=== PATIENT | female | born 1995 | race Caucasian/White ===

== ENCOUNTER 2017-11-02 18:03 | Inpatient (IN) | payer SELFPAY ==
[~2017-11-02] VITALS: Ht 167.6 cm; Wt 61.8 kg
[2017-11-02 18:17] VITALS: BP 112/84; PULSE 95; RESP 16; TEMP 98.3; O2SAT 97
--- NOTE | 2017-11-02 20:33 | PD ---
HPI Chief Complaint: Psychiatric Symptoms Time Seen by Provider: 20:26 Travel History International Travel<30 days: No Contact w/Intl Traveler<30days: No Traveled to known affect area: No History of Present Illness HPI 22-year-old female presents to the emergency room with her father for evaluation of altered mental status. Patient's mother states she started Lexapro and Abilify recently and since then she has not been acting normally. He states she is responding to external stimuli. Patient reports using drugs including cocaine but denies any recent drug use. She denies any physical complaints at this time. Denies headache, shortness of breath, chest pain, abdominal pain. She is difficult to extract information from because she seems preoccupied and has difficulty with word finding. History is limited. [facility] Social History Tobacco Use: No Allergies-Medications (Allergen,Severity, Reaction): Coded Allergies: No Known Allergies (Unverified , 11/02/17) Reported Meds & Prescriptions Reported Meds & Active Scripts Active Reported Lexapro (Escitalopram Oxalate) 10 Mg Tab 10 Mg PO DAILY Review of Systems Except as stated in HPI: all other systems reviewed are Neg Physical Exam Narrative GENERAL: Well-nourished, well-developed female no acute distress. Afebrile. Ambulatory. SKIN: Focused skin assessment warm/dry. HEAD: Normocephalic. EYES: PERRL, EOMI, no discharge or injection. No scleral icterus. Pupils are 7mm and equal. NECK: Supple, trachea midline. No JVD or lymphadenopathy. CARDIOVASCULAR: Tachycardic. Regular rhythm without murmurs, gallops, or rubs. RESPIRATORY: Breath sounds equal bilaterally. No accessory muscle use. PSYCHIATRIC: No delusional thought processes. No hallucinations. Flat affect. Good mood. Data Data Last Documented VS Vital Signs Date Time Temp Pulse Resp B/P (MAP) Pulse Ox O2 Delivery O2 Flow Rate FiO2 11/03/17 02:23 97.9 56 17 106/59 (75) 97 Room Air Orders Orders Complete Blood Count With Diff (11/02/17 19:39) Comprehensive Metabolic Panel (11/02/17 19:39) Urinalysis - C+S If Indicated (11/02/17 19:39) Ed Urine Pregnancytest Poc (11/02/17 19:39) Psych Screen (11/02/17 19:39) Drug Screen, Random Urine (11/02/17 19:39) Alcohol (Ethanol) (11/02/17 19:39) Salicylates (Aspirin) (11/02/17 19:39) Tylenol (Acetaminophen) (11/02/17 19:39) Ammonia (11/02/17 20:26) Ct Brain W/O Iv Contrast(Rout) (11/02/17 20:26) Cath For Specimen (11/02/17 21:07) Potassium Chloride (Kcl) (11/02/17 21:45) Diet Regular Basic (11/03/17 Breakfast) Diet Regular Basic (11/03/17 Lunch) Aripiprazole (Abilify) (11/03/17 10:45) Aripiprazole (Abilify) (11/03/17 11:00) Lorazepam (Ativan) (11/03/17 11:00) Clonazepam (Klonopin) (11/03/17 21:00) Escitalopram (Lexapro) (11/03/17 10:45) Admit To Inpatient Psych (11/03/17 ) Vital Signs (Adult) HANY.Q12H.E (11/03/17 10:39) Activity Oob Ad Rosaura (11/03/17 10:39) Lorazepam (Ativan) (11/03/17 10:45) Lorazepam Inj (Ativan Inj) (11/03/17 10:45) Lorazepam (Ativan) (11/03/17 10:45) Lorazepam Inj (Ativan Inj) (11/03/17 10:45) Acetaminophen (Tylenol) (11/03/17 10:45) Magnesium Hydroxide Liq (Milk Of Magnesi (11/03/17 10:45) Al-Mag Hy-Si 40-40-4 Mg/Ml Liq (Mag-Al P (11/03/17 10:45) Nicotine 21 Mg Patch.24 Hr (Habitrol 21 (11/03/17 10:45) Basic Metabolic Panel (Bmp) (11/04/17 06:00) Lipid Profile (11/04/17 06:00) Hemoglobin (Hgb) A1c (11/04/17 06:00) Consult Psychiatry (11/03/17 ) Labs Laboratory Tests Test 11/02/17 19:55 11/02/17 20:30 11/02/17 21:10 White Blood Count 11.1 TH/MM3 Red Blood Count 5.17 MIL/MM3 Hemoglobin 15.5 GM/DL Hematocrit 45.2 % Mean Corpuscular Volume 87.5 FL Mean Corpuscular Hemoglobin 29.9 PG Mean Corpuscular Hemoglobin Concent 34.2 % Red Cell Distribution Width 12.8 % Platelet Count 360 TH/MM3 Mean Platelet Volume 9.0 FL Neutrophils (%) (Auto) 66.1 % Lymphocytes (%) (Auto) 27.2 % Monocytes (%) (Auto) 5.5 % Eosinophils (%) (Auto) 0.4 % Basophils (%) (Auto) 0.8 % Neutrophils # (Auto) 7.3 TH/MM3 Lymphocytes # (Auto) 3.0 TH/MM3 Monocytes # (Auto) 0.6 TH/MM3 Eosinophils # (Auto) 0.0 TH/MM3 Basophils # (Auto) 0.1 TH/MM3 CBC Comment DIFF FINAL Differential Comment Blood Urea Nitrogen 13 MG/DL Creatinine 0.95 MG/DL Random Glucose 123 MG/DL Total Protein 9.1 GM/DL Albumin 5.2 GM/DL Calcium Level 9.8 MG/DL Alkaline Phosphatase 87 U/L Aspartate Amino Transf (AST/SGOT) 14 U/L Alanine Aminotransferase (ALT/SGPT) 21 U/L Total Bilirubin 0.7 MG/DL Sodium Level 138 MEQ/L Potassium Level 3.1 MEQ/L Chloride Level 103 MEQ/L Carbon Dioxide Level 22.3 MEQ/L Anion Gap 13 MEQ/L Estimat Glomerular Filtration Rate 74 ML/MIN Salicylates Level LESS THAN 1.7 MG/DL Acetaminophen Level LESS THAN 2.0 MCG/ML Ethyl Alcohol Level LESS THAN 3 MG/DL Urine Color YELLOW Urine Turbidity HAZY Urine pH 6.0 Urine Specific [place] 1.038 Urine Protein 30 mg/dL Urine Glucose (UA) NEG mg/dL Urine Ketones 10 mg/dL Urine Occult Blood TRACE Urine Nitrite NEG Urine Bilirubin NEG Urine Urobilinogen 2.0 MG/DL Urine Leukocyte Esterase LARGE Urine RBC 1 /hpf Urine WBC LESS THAN 1 /hpf Urine Squamous Epithelial Cells 3 /hpf Urine Mucus MANY /lpf Microscopic Urinalysis Comment CULT NOT INDICATED Urine Opiates Screen NEG Urine Barbiturates Screen NEG Urine Amphetamines Screen NEG Urine Benzodiazepines Screen NEG Urine Cocaine Screen NEG Urine Cannabinoids Screen POS Ammonia 23 MCMOL/L MDM Medical Decision Making Medical Screen Exam Complete: Yes Emergency Medical Condition: Yes Medical Record Reviewed: Yes Differential Diagnosis Schizophrenia, medication side effect, substance induced mood disorder Narrative Course 22-year-old female presents to the emergency room for evaluation of altered mental status that started after starting Abilify and Lexapro. History is limited because patient is preoccupied by internal stimuli. She denies recent drug use. Denies any physical complaints. Patient is slightly tachycardic and her pupils are 7 mm and equal. CBC, CMP, UA, drug screen, ammonia, and CT the brain is ordered and pending. Signed out to nighttime provider pending results. Condition: Stable Izabella Caldwell Nov 02, 2017 20:33
[2017-11-02 20:48] LABS: AUTOMATED NEUTROPHIL # 7.3 TH/MM3 (1.8-7.7); BASOPHIL # 0.1 TH/MM3 (0-0.2); BASOPHIL % 0.8 % (0.0-2.0); EOSINOPHIL % 0.4 % (0.0-4.0); HEMATOCRIT 45.2 % (35.0-46.0); HEMOGLOBIN 15.5 GM/DL (11.6-15.3); LYMPH % 27.2 % (9.0-44.0); MEAN CELL VOLUME 87.5 FL (80.0-100.0); MEAN CORPUSCULAR HEMOGLOBIN 29.9 PG (27.0-34.0); MEAN CORPUSCULAR HGB CONC 34.2 % (32.0-36.0); MONO % 5.5 % (0.0-8.0); MONOCYTE # 0.6 TH/MM3 (0-0.9); NEUT % 66.1 % (16.0-70.0); PLATELET COUNT 360 TH/MM3 (150-450); RED BLOOD COUNT 5.17 MIL/MM3 (4.00-5.30); RED CELL DISTRIBUTION WIDTH 12.8 % (11.6-17.2); WHITE BLOOD COUNT 11.1 TH/MM3 (4.0-11.0)
[2017-11-02 20:49] LABS: BLOOD UREA NITROGEN 13 MG/DL (7-18); CALCIUM 9.8 MG/DL (8.5-10.1); CHLORIDE 103 MEQ/L (98-107); GLUCOSE,RANDOM 123 MG/DL (74-106); SODIUM (NA) 138 MEQ/L (136-145)
[2017-11-02 20:54] LABS: ALT (GPT) 21 U/L (10-53); AST (GOT) 14 U/L (15-37)
[2017-11-02] MEDS ORDERED: LEXA10TA PO (21:19)
[2017-11-02] MEDS ORDERED: ARIP2 PO (21:19)
--- NOTE | 2017-11-02 21:31 | RADRPT ---
EXAM DATE/TIME: 11/02/2017 21:02 [place] COMPARISON: No previous studies available for comparison. INDICATIONS : Altered mental status. RADIATION DOSE: 47.02 CTDIvol (mGy) MEDICAL HISTORY : None SURGICAL HISTORY : None. ENCOUNTER: Initial ACUITY: 1 day PAIN SCALE: 0/10 LOCATION: cranial TECHNIQUE: Multiple contiguous axial images were obtained of the head. Using automated exposure control and adj ustment of the mA and/or kV according to patient size, radiation dose was kept as low as reasonably a chievable to obtain optimal diagnostic quality images. DICOM format image data is available electro nically for review and comparison. FINDINGS: CEREBRUM: The ventricles are normal for age. No evidence of midline shift, mass lesion, hemorrhage or acute in farction. No extra-axial fluid collections are seen. POSTERIOR FOSSA: The cerebellum and brainstem are intact. The 4th ventricle is midline. The cerebellopontine angle i s unremarkable. EXTRACRANIAL: The visualized portion of the orbits is intact. SKULL: The calvaria is intact. No evidence of skull fracture. CONCLUSION: No acute disease. Melchor Ness MD on November 02, 2017 at 21:29 Board Certified Radiologist. This report was verified electronically.
[2017-11-02 21:32] LABS: ALKALINE PHOSPHATASE 87 U/L (45-117); CREATININE 0.95 MG/DL (0.50-1.00); GLOMERULAR FILTRATION RATE 74 ML/MIN (>89); TOTAL BILIRUBIN ADULT 0.7 MG/DL (0.2-1.0); TOTAL PROTEIN 9.1 GM/DL (6.4-8.2)
[2017-11-02 21:34] LABS: ACETAMINOPHEN LESS THAN 2.0 MCG/ML (10.0-30.0)
[2017-11-02 21:35] LABS: ALBUMIN 5.2 GM/DL (3.4-5.0); BICARBONATE 22.3 MEQ/L (21.0-32.0)
[2017-11-02] MEDS ORDERED: POTASSIUM CHLORIDE 20 MEQ CONTROLLED RELEASE TAB PO ONE (21:45)
--- NOTE | 2017-11-02 21:52 | PD ---
Physical Exam Date Seen by Provider: Nov 02, 2017 Time Seen by Provider: 21:50 Narrative For full history and physical examination please see previous providers note. I assumed care of this patient change of shift. At that time labs and imaging were pending. Data Data Last Documented VS Vital Signs Date Time Temp Pulse Resp B/P (MAP) Pulse Ox O2 Delivery O2 Flow Rate FiO2 11/02/17 18:17 98.3 95 16 112/84 (93) 97 Orders Orders Complete Blood Count With Diff (11/02/17 19:39) Comprehensive Metabolic Panel (11/02/17 19:39) Urinalysis - C+S If Indicated (11/02/17 19:39) Ed Urine Pregnancytest Poc (11/02/17 19:39) Psych Screen (11/02/17 19:39) Drug Screen, Random Urine (11/02/17 19:39) Alcohol (Ethanol) (11/02/17 19:39) Salicylates (Aspirin) (11/02/17 19:39) Tylenol (Acetaminophen) (11/02/17 19:39) Ammonia (11/02/17 20:26) Ct Brain W/O Iv Contrast(Rout) (11/02/17 20:26) Cath For Specimen (11/02/17 21:07) Potassium Chloride (Kcl) (11/02/17 21:45) Labs Laboratory Tests Test 11/02/17 19:55 11/02/17 20:30 11/02/17 21:10 White Blood Count 11.1 TH/MM3 Red Blood Count 5.17 MIL/MM3 Hemoglobin 15.5 GM/DL Hematocrit 45.2 % Mean Corpuscular Volume 87.5 FL Mean Corpuscular Hemoglobin 29.9 PG Mean Corpuscular Hemoglobin Concent 34.2 % Red Cell Distribution Width 12.8 % Platelet Count 360 TH/MM3 Mean Platelet Volume 9.0 FL Neutrophils (%) (Auto) 66.1 % Lymphocytes (%) (Auto) 27.2 % Monocytes (%) (Auto) 5.5 % Eosinophils (%) (Auto) 0.4 % Basophils (%) (Auto) 0.8 % Neutrophils # (Auto) 7.3 TH/MM3 Lymphocytes # (Auto) 3.0 TH/MM3 Monocytes # (Auto) 0.6 TH/MM3 Eosinophils # (Auto) 0.0 TH/MM3 Basophils # (Auto) 0.1 TH/MM3 CBC Comment DIFF FINAL Differential Comment Blood Urea Nitrogen 13 MG/DL Creatinine 0.95 MG/DL Random Glucose 123 MG/DL Total Protein 9.1 GM/DL Albumin 5.2 GM/DL Calcium Level 9.8 MG/DL Alkaline Phosphatase 87 U/L Aspartate Amino Transf (AST/SGOT) 14 U/L Alanine Aminotransferase (ALT/SGPT) 21 U/L Total Bilirubin 0.7 MG/DL Sodium Level 138 MEQ/L Potassium Level 3.1 MEQ/L Chloride Level 103 MEQ/L Carbon Dioxide Level 22.3 MEQ/L Anion Gap 13 MEQ/L Estimat Glomerular Filtration Rate 74 ML/MIN Salicylates Level LESS THAN 1.7 MG/DL Acetaminophen Level LESS THAN 2.0 MCG/ML Ethyl Alcohol Level LESS THAN 3 MG/DL Urine Opiates Screen NEG Urine Barbiturates Screen NEG Urine Amphetamines Screen NEG Urine Benzodiazepines Screen NEG Urine Cocaine Screen NEG Urine Cannabinoids Screen POS Ammonia 23 MCMOL/L [facility] Medical Record Reviewed: Yes Supervised Visit with NIKHIL: No Interpretation(s) Laboratory Tests Test 11/02/17 19:55 11/02/17 20:30 11/02/17 21:10 White Blood Count 11.1 TH/MM3 Red Blood Count 5.17 MIL/MM3 Hemoglobin 15.5 GM/DL Hematocrit 45.2 % Mean Corpuscular Volume 87.5 FL Mean Corpuscular Hemoglobin 29.9 PG Mean Corpuscular Hemoglobin Concent 34.2 % Red Cell Distribution Width 12.8 % Platelet Count 360 TH/MM3 Mean Platelet Volume 9.0 FL Neutrophils (%) (Auto) 66.1 % Lymphocytes (%) (Auto) 27.2 % Monocytes (%) (Auto) 5.5 % Eosinophils (%) (Auto) 0.4 % Basophils (%) (Auto) 0.8 % Neutrophils # (Auto) 7.3 TH/MM3 Lymphocytes # (Auto) 3.0 TH/MM3 Monocytes # (Auto) 0.6 TH/MM3 Eosinophils # (Auto) 0.0 TH/MM3 Basophils # (Auto) 0.1 TH/MM3 CBC Comment DIFF FINAL Differential Comment Blood Urea Nitrogen 13 MG/DL Creatinine 0.95 MG/DL Random Glucose 123 MG/DL Total Protein 9.1 GM/DL Albumin 5.2 GM/DL Calcium Level 9.8 MG/DL Alkaline Phosphatase 87 U/L Aspartate Amino Transf (AST/SGOT) 14 U/L Alanine Aminotransferase (ALT/SGPT) 21 U/L Total Bilirubin 0.7 MG/DL Sodium Level 138 MEQ/L Potassium Level 3.1 MEQ/L Chloride Level 103 MEQ/L Carbon Dioxide Level 22.3 MEQ/L Anion Gap 13 MEQ/L Estimat Glomerular Filtration Rate 74 ML/MIN Salicylates Level LESS THAN 1.7 MG/DL Acetaminophen Level LESS THAN 2.0 MCG/ML Ethyl Alcohol Level LESS THAN 3 MG/DL Last Impressions Head CT 11/02/172025 Signed Impressions: Service Date/Time: Thursday, November 02, 2017 21:02 - CONCLUSION: No acute disease. Melchor Ness MD Vital Signs Date Time Temp Pulse Resp B/P (MAP) Pulse Ox O2 Delivery O2 Flow Rate FiO2 11/02/17 18:17 98.3 95 16 112/84 (93) 97 Differential Diagnosis Psychosis versus mood disorder versus substance abuse versus metabolic abnormality versus other Narrative Course Patient is 22-year-old female that presented to the emergency department for psychiatric evaluation under [employer] act. Please see previous providers note for full H&P. CT scan of the brain is negative for acute abnormality. Chemistry with potassium of 3.1, oral replacement ordered. Salicylate, acetaminophen and alcohol levels are unremarkable. Urine drug screen is positive for marijuana. Ammonia level is normal. Patient is medically cleared for psychiatric evaluation. Diagnosis Primary Impression: Medical clearance for psychiatric admission Condition: Stable Maria Isabel Sadns Nov 02, 2017 21:52
[2017-11-03 00:19] LABS: BILIRUBIN, URINE NEG (NEG); BLOOD, URINE TRACE (NEG); GLUCOSE,URINE NEG (NEG); KETONE, URINE 10 mg/dL (NEG); MUCUS URINE MANY /lpf (OCC); NITRITE,URINE NEG (NEG); SQUAMOUS EPITHELIAL CELL URINE 3 /hpf (0-5); URINE COLOR YELLOW (YELLW/STRAW); URINE LEUKOCYTE ESTERASE LARGE (NEG)
[2017-11-03 02:23] VITALS: BP 106/59; PULSE 56; RESP 17; TEMP 97.9; O2SAT 97
[2017-11-03 02:25] VITALS: BP 113/66; PULSE 56; RESP 17; TEMP 97.5; O2SAT 97
[2017-11-03 10:45] VITALS: BP 117/76; PULSE 80; RESP 18; O2SAT 96
[2017-11-03] MEDS: ESCITALOPRAM OXALATE 10 MG TAB PO SCH (10:45)
[2017-11-03] MEDS: NICOTINE 21 MG/24 HR PATCH T-DERMAL SCH (10:45)
[2017-11-03] MEDS ORDERED: ACETAMINOPHEN 325 MG TAB PO PRN (10:45)
[2017-11-03] MEDS: ARIPiprazole 5 MG TAB PO SCH (10:45)
[2017-11-03] MEDS ORDERED: LORazepam 2 MG/ML VIAL IM PRN ×2 (10:45)
[2017-11-03] MEDS ORDERED: LORazepam 1 MG TAB PO PRN (10:45)
[2017-11-03] MEDS ORDERED: MAGNESIUM HYDROXIDE SUSP 30 ML CUP PO PRN (10:45)
[2017-11-03] MEDS ORDERED: LORazepam 0.5 MG TAB PO PRN (10:45)
[2017-11-03] MEDS ORDERED: ARIPiprazole 5 MG TAB PO ONE (11:00)
[2017-11-03] MEDS ORDERED: LORazepam 1 MG TAB PO ONE (11:00)
--- NOTE | 2017-11-03 11:59 | HHI.HP ---
Provisional Diagnosis Admission Date Nov 03, 2017 at 10:42 [place] I. Unspecified psychosis, r/O schizophrenia, r/o schizoaffective disorder [place] II. Deferred [place] III. No significant medical history [place] IV. Recently discharged from [facility] [place] V. 30 Certification of Person's Competence To Provide Express and Informed Consent I have personally examined Rody Leslie , a person being served at [facility] on, Nov 03, 2017 11:31. Express and informed consent means consent voluntarily given in writing, by a competent person, after sufficient explanation and disclosure of the subject matter involved to enable the person to make a knowing and willful decision without any element of force, fraud, deceit, duress, or other form of constraint or coercion. This person is 18 years of age or older, is not now known to be incompetent to consent to treatment with a guardian advocate, and does not have a health care surrogate or proxy currently making medical treatment decisions. I have found this person to be one of the following: [] Competent to provide express and informed consent, as defined above, for voluntary admission to this facility and is competent to provide express and informed consent for treatment. He/she has the consistent capacity to make well reasoned, willful, and knowing decisions concerning his or her medical or mental health treatment. The person fully and consistently understands the purpose of the admission for examination/placement and is fully capable of personally exercising all rights [place] [X] Incompetent to provide express and informed consent to voluntary admission, and this is incompetent to provide express and informed consent to treatment. The person must be transferred to involuntary status and a petition for a guardian advocate filed with the Circuit Court. [] Refusing to provide express and informed consent to voluntary admission but is competent to provide express and informed consent for treatment. The person must be discharged or transferred to involuntary status. Form shall be completed within 24 hours of a person's arrival at the receiving facility and filed in the clinical record of each person: 1. Admitted on a voluntary basis 2. Permitted to provide express and informed consent to his/her own treatment 3. Allowed to transfer from involuntary to voluntary status 4. Prior to permitting a person to consent to his or her own treatment after having been previously found incompetent to consent to treatment. History of Present Illness Capacity: Lacks Capacity HPI The patient is a 22-year-old woman, domiciled with her boyfriend in [place], unemployed, with psychiatric history of depression, cannabis use disorder, 1 previous psychiatric hospitalization, she was just discharged from [facility] after a hospitalization of 4 days due to depression, no previous suicide attempts, she was discharged on Celexa 40 mg, Abilify 2 mg, she has not significant medical history, who presents to the emergency room with her father for evaluation of altered mental status. Patient's mother states she started Lexapro and Abilify recently and since then she has not been acting normally. He states she is responding to external stimuli. Patient reports using drugs including cocaine but denies any recent drug use. She denies any physical complaints at this time. Denies headache, shortness of breath, chest pain, abdominal pain. She is difficult to extract information from because she seems preoccupied and has difficulty with word finding. History is limited. Patient was Boogie acted by Ms. Spencer in the ER. She has a workup of delirium due to confusion. CT scan of the brain is negative for acute abnormality. Chemistry with potassium of 3.1, oral replacement ordered.Urine drug screen is positive for marijuana. Ammonia level is normal. Electronic record was reviewed. Case was widely discussed with nurse in charge medical staff, collateral information from her father was obtained: Tim Malcolmusman, . On psychiatric evaluation today the patient is found standing in the door of her room, very guarded, seems to be in acute distress, very anxious and visibly scared. Once the patient saw me she is started to ask "are you god, are you god, please I ask you for forgiveness, please forgive me, I being doing very bad things," and I started crying. As I redirect I reassured the patient, she was able to calm down, which he seems to be very paranoid and internally preoccupied. Patient reports that she feels that all the eyes around and looking at her. She says that she feels like she is not safe here "and these people could be tried to kill". Patient seems to be very religiously preoccupied, she has a Bible over her bed and is continuously imploring for forgiveness from God and angels. Patient says that she feels like her mind is very weak "I know that you can see what I am thinking now". At some point the patient just stopped talking, not answering any question, with a visible blocking thought. As per nurse in charge , the patient has been acting bizarre in the ER, disinhibited at times, also internally stimulated, paranoid, yesterday she showed sexual inappropriate behavior with another patient. She seems to be confused, but oriented 3. She does not know the reason of her hospitalization. She denies suicidal and homicidal ideation, she denies visual and auditory hallucinations. Her father states that the patient does not have any psychiatric history. She has been a very healthy and normal person. She recently moved with her boyfriend to [place]. About a week ago she called him stating that she was very depressed because her boyfriend was cheating on her with her neighbor. She was talking about killing herself and he took her to [facility] where she was admitted with depression. She was admitted for 4 days and then discharge. However, after the discharge the patient started acting very bizarrely. For example, at some time she was watching that he and she was telling him that the person killed in a movie was her and he started crying. Another thing is that he confirmed that the patient's boyfriend was not cheating of her with antibiotic, and she was most probably paranoid before being admitted in [facility]. About 2 days ago the patient started to cry for no reason, making accusations toward others, making a lot of amish statements and becoming very disorganized and he decided to bring her here. He reports that the mother of the patient is an opiate abuser. But, her grandmother has history of depression and 1 of her aunts committed suicide. Review of Systems Constitutional: DENIES: Diaphoretic episodes, Fatigue, Fever, Weight gain, Weight loss, Chills, Dizziness, Change in appetite, Night Sweats Endocrine: DENIES: Abnorml menstrual pattern, Heat/cold intolerance, Polydipsia , Polyuria, Polyphagia Eyes: DENIES: Blurred vision, Diplopia, Eye inflammation, Eye pain, Vision loss , Photosensitivity, Double Vision Ears, nose, mouth, throat: DENIES: Tinnitus, Hearing loss, Vertigo, Nasal discharge, Oral lesions, Throat pain, Hoarseness, Ear Pain, Running Nose, Epistaxis, Sinus Pain, Toothache, Odynophagia Respiratory: DENIES: Apneas, Cough, Snoring, Wheezing, Hemoptysis, Sputum production, Shortness of breath Cardiovascular: DENIES: Chest pain, Palpitations, Syncope, Dyspnea on Exertion , PND, Lower Extremity Edema, Orthopnea, Claudication Gastrointestinal: DENIES: Abdominal pain, Black stools, Bloody stools, Constipation, Diarrhea, Nausea, Vomiting, Difficulty Swallowing, Anorexia Genitourinary: DENIES: Abnormal vaginal bleeding, Dysmenorrhea, Dyspareunia, Sexual dysfunction, Urinary frequency, Urinary incontinence, Urgency, Hematuria , Dysuria, Nocturia, Vaginal discharge Musculoskeletal: DENIES: Joint pain, Muscle aches, Stiffness, Joint Swelling, Back pain, Neck pain Integumentary: DENIES: Abnormal pigmentation, Pruritus, Rash, Nail changes, Breast masses, Breast skin changes, Nipple discharge Hematologic/lymphatic: DENIES: Bruising, Lymphadenopathy Immunologic/allergic: DENIES: Eczema, Urticaria Neurologic: DENIES: Abnormal gait, Headache, Localized weakness, Paresthesias, Seizures, Speech Problems, Tremor, Poor Balance Psychiatric: COMPLAINS OF: Confusion, Delusions, DENIES: Anxiety, Mood changes , Hallucinations, Agitation, Suicidal Ideation, Homicidal Ideation Substance Abuse History Drugs/Alcohol past 12 months Patient reports daily use of marijuana, occasional use of cocaine Past Family Social History Coded Allergies: No Known Allergies (Unverified , 11/02/17) Reported Medications Aripiprazole (Abilify) 2 Mg Tab, 2 MG PO DAILY, #30 TAB 0 Refills 11/02/17 Escitalopram (Lexapro) 10 Mg Tab, 10 MG PO DAILY, #30 TAB 0 Refills 11/02/17 Current Medications Medications (Trade) Dose Ordered Sig/Ha Route Start Time Stop Time Status Last Admin (Abilify) 5 mg DAILY PO 11/03/17 10:45 (KlonoPIN) 1 mg Q12HR PO 11/03/17 21:00 (Lexapro) 10 mg DAILY PO 11/03/17 10:45 (Ativan) 1 mg Q6H PRN PO 11/03/17 10:45 (Ativan Inj) 1 mg Q6H PRN IM 11/03/17 10:45 (Tylenol) 650 mg Q4H PRN PO 11/03/17 10:45 (Milk Of Magnesia Liq) 30 ml DAILY PRN PO 11/03/17 10:45 (Mag-Al Plus Susp Liq) 30 ml Q6H PRN PO 11/03/17 10:45 (Habitrol 21 Mg Patch.24 Hr) 1 patch DAILY T-DERMAL 11/03/17 10:45 Miscellaneous Information 1 DAILY T-DERMAL 11/04/17 09:00 Family Psych History Her mother is an opiate abuser, she has an element who committed suicide, grandmother depression Social History Patient was born and raised in the [facility], she lives in [place] with her boyfriend, she is unemployed, her highest level of education is high school, she has a 22 year old sister Patient's Strengths (min. 2) Family support Physical Exam No tremors, no EPS, no stiffness, no psychomotor retardation or agitation Vital Signs Vital Signs Date Time Temp Pulse Resp B/P (MAP) Pulse Ox O2 Delivery O2 Flow Rate FiO2 11/03/17 10:45 80 18 117/76 (90) 96 Room Air 11/03/17 02:23 97.9 Lab Results Test 11/02/17 19:55 11/02/17 20:30 11/02/17 21:10 White Blood Count 11.1 TH/MM3 Red Blood Count 5.17 MIL/MM3 Hemoglobin 15.5 GM/DL Hematocrit 45.2 % Mean Corpuscular Volume 87.5 FL Mean Corpuscular Hemoglobin 29.9 PG Mean Corpuscular Hemoglobin Concent 34.2 % Red Cell Distribution Width 12.8 % Platelet Count 360 TH/MM3 Mean Platelet Volume 9.0 FL Neutrophils (%) (Auto) 66.1 % Lymphocytes (%) (Auto) 27.2 % Monocytes (%) (Auto) 5.5 % Eosinophils (%) (Auto) 0.4 % Basophils (%) (Auto) 0.8 % Neutrophils # (Auto) 7.3 TH/MM3 Lymphocytes # (Auto) 3.0 TH/MM3 Monocytes # (Auto) 0.6 TH/MM3 Eosinophils # (Auto) 0.0 TH/MM3 Basophils # (Auto) 0.1 TH/MM3 CBC Comment DIFF FINAL Differential Comment Blood Urea Nitrogen 13 MG/DL Creatinine 0.95 MG/DL Random Glucose 123 MG/DL Total Protein 9.1 GM/DL Albumin 5.2 GM/DL Calcium Level 9.8 MG/DL Alkaline Phosphatase 87 U/L Aspartate Amino Transf (AST/SGOT) 14 U/L Alanine Aminotransferase (ALT/SGPT) 21 U/L Total Bilirubin 0.7 MG/DL Sodium Level 138 MEQ/L Potassium Level 3.1 MEQ/L Chloride Level 103 MEQ/L Carbon Dioxide Level 22.3 MEQ/L Anion Gap 13 MEQ/L Estimat Glomerular Filtration Rate 74 ML/MIN Salicylates Level LESS THAN 1.7 MG/DL Acetaminophen Level LESS THAN 2.0 MCG/ML Ethyl Alcohol Level LESS THAN 3 MG/DL Urine Color YELLOW Urine Turbidity HAZY Urine pH 6.0 Urine Specific Gabbs 1.038 Urine Protein 30 mg/dL Urine Glucose (UA) NEG mg/dL Urine Ketones 10 mg/dL Urine Occult Blood TRACE Urine Nitrite NEG Urine Bilirubin NEG Urine Urobilinogen 2.0 MG/DL Urine Leukocyte Esterase LARGE Urine RBC 1 /hpf Urine WBC LESS THAN 1 /hpf Urine Squamous Epithelial Cells 3 /hpf Urine Mucus MANY /lpf Microscopic Urinalysis Comment CULT NOT INDICATED Urine Opiates Screen NEG Urine Barbiturates Screen NEG Urine Amphetamines Screen NEG Urine Benzodiazepines Screen NEG Urine Cocaine Screen NEG Urine Cannabinoids Screen POS Ammonia 23 MCMOL/L Mental Status Examination Appearance: Dirty, Disheveled, Malodorous Consciousness: Alert Orientation: x4 Motor Activity: Normal gait Speech: Hesitant Language: Adequate, Perseveration Fund of Knowledge: Adequate Mood: Sad, Irritable Affect: Irritable Thought Process & Associations: Loose associations, Disorganized Thought Content: Bizarre thinking, Ideas of reference, Thought blocking, Delusional Hallucination Type: None Delusion Type: Bizarre, Paranoid Suicidal Ideation: No Suicidal Plan: No Suicidal Intention: No Homicidal Ideation: No Homicidal Plan: No Insight: Poor Judgment: Poor Assessment & Plan Problem List: (1) Unspecified psychosis ICD Codes: F29 - Unspecified psychosis not due to a substance or known physiological condition Assessment & Plan: Psychiatric evaluation today I find a patient who is extremely guarded, anxious, paranoid and internally stimulated. Patient also presents with prominent blocking thoughts, delusions of reference, guiltiness and religiously preoccupied. Throughout the evaluation the patient demonstrates that she has a severe impairment in contact with reality and thought process distortion and she is even unable to elaborate simple ideas at this moment. This is a patient that does not have a previous psychiatric history, she has no previous suicidal attempts, other than cannabis use disorder and occasional use of cocaine in the past. She was recently admitted in [facility] for depression for 4 days and discharge in Abilify 2 mg and citalopram 40 mg. As per family members is possible that the patient could be in a prodromal process of psychosis in the last weeks and her recent admission for depression most probably was related with paranoid ideations. She has a important psychiatric family history/biological component of psychiatric illnesses, her mother is a opioid abuser, she has announced who committed suicide and her grandmother severe depression. The patient definitely meets criteria for involuntary psychiatric admission for stabilization and safety. First break schizophrenia must be carefully rule out, as well as schizoaffective disorder, bipolar with psychosis, depression with psychosis and even drug-induced psychosis and paraneoplastic psychosis. Initial medical workup is negative including brain CT. I will increase the Abilify to 5 mg, continue citalopram 40 mg and will add Ativan 2 mg twice a day to help the patient with her anxiety and hypervigilance. Transfer patient to 2700 unit. Brief supportive psychotherapy, psychoeducation provided. Plan and psychotropic regimen was widely discussed with her father who is appointed as guardian advocate. probation worker intervention for psychosocial assessment, arrange family meeting, individual and group therapies, also coordinate safe discharge planning. Consult for second opinion already placed. Assessment & Plan Estimated LOS: Dannie Perez MD Nov 03, 2017 11:59
[2017-11-03 12:50] VITALS: BP 105/59; PULSE 122; RESP 18; TEMP 98.1; O2SAT 96
[2017-11-03 17:00] VITALS: BP 120/64; PULSE 107; RESP 16; TEMP 98.5; O2SAT 99
[2017-11-03] MEDS: clonazePAM 1 MG TAB PO SCH (20:18)
[2017-11-04 05:54] VITALS: BP 122/76; PULSE 110; RESP 16; TEMP 98.1; O2SAT 98
[2017-11-04] MEDS: ARIPiprazole 5 MG TAB PO SCH (08:47)
[2017-11-04] MEDS: clonazePAM 1 MG TAB PO SCH ×2 (08:47→20:34)
[2017-11-04] MEDS: ESCITALOPRAM OXALATE 10 MG TAB PO SCH (08:47)
[2017-11-04] MEDS: NICOTINE 21 MG/24 HR PATCH T-DERMAL SCH (09:00)
[2017-11-04] MEDS: REMOVE OLD PATCH T-DERMAL SCH (09:00)
--- NOTE | 2017-11-04 11:19 | HHI.PYPN ---
Subjective Remarks Patient initially admitted by Dr. Dannie Espinoza, is H&P reviewed and agreed with. I finished the admission psychiatric template orders, and also review the med reconciliation. Dr. Espinoza has done first opinion petition supporting Boogie act I agree. Patient meets criteria for involuntary psychiatric hospitalization thus I'll cosign second opinion petition supporting Boogie act. Patient seen by me with nurse Jacquelyn. Patient showing marked disorganization confusion related to past history she is somewhat redundant and circular in her statements. While she denies voices she appears to be responding to internal stimuli. She acknowledges visual hallucinations of a bright light perhaps seeing dotting getting some type of her revelation. She did acknowledge frequent marijuana use with her boyfriend, acknowledges past cocaine use opiate use possibly amphetamine or methamphetamine use and perhaps other drugs. She also acknowledges misuse of alcohol as a teen. For now will continue treatment no change continue observation with the scheduled dose of Abilify, Lexapro, and Klonopin Review of Systems Except as stated in HPI: all other systems reviewed are Neg Mental Status Examination Appearance: Dirty, Disheveled, Malodorous Consciousness: Alert Orientation: x4 Motor Activity: Normal gait Speech: Hesitant Language: Adequate, Perseveration Fund of Knowledge: Adequate Mood: Sad, Irritable Affect: Irritable Thought Process & Associations: Loose associations, Disorganized Thought Content: Bizarre thinking, Ideas of reference, Thought blocking, Delusional Hallucination Type: None Delusion Type: Bizarre, Paranoid Suicidal Ideation: No Suicidal Plan: No Suicidal Intention: No Homicidal Ideation: No Homicidal Plan: No Insight: Poor Judgment: Poor Results Vitals/IOs Vital Signs Date Time Temp Pulse Resp B/P (MAP) Pulse Ox O2 Delivery O2 Flow Rate FiO2 11/04/17 05:54 98.1 110 16 122/76 (91) 98 11/03/17 10:45 Room Air Assessment & Plan Problem List: (1) Brief psychotic disorder ICD Codes: F23 - Brief psychotic disorder Assessment & Plan Estimated LOS: days patient remained psychotic delusional and somewhat confusing. She medication adjustments above Justification for Cont. Inpt. At this time patient will decompensate if placed in a lower level of care Discharge Planning To be determined possibly to return home with father Request HC Surrog/Guard Advoc?: Yes Melchor Carmona MD Nov 04, 2017 11:19
[2017-11-04 11:54] LABS: BICARBONATE 26.3 MEQ/L (21.0-32.0); BLOOD UREA NITROGEN 10 MG/DL (7-18); CALCIUM 9.4 MG/DL (8.5-10.1); CHLORIDE 100 MEQ/L (98-107); CREATININE 1.07 MG/DL (0.50-1.00); GLOMERULAR FILTRATION RATE 65 ML/MIN (>89); GLUCOSE,RANDOM 114 MG/DL (74-106); SODIUM (NA) 137 MEQ/L (136-145)
[2017-11-04 11:57] LABS: CHOLESTEROL 128 MG/DL (120-200); CHOLESTEROL/ HDL RATIO 2.37 RATIO; HDL CHOLESTEROL 53.9 MG/DL (40.0-60.0); LDL CHOLESTEROL 60 MG/DL (0-99); TRIGLYCERIDES 69 MG/DL (42-150)
[2017-11-04 16:36] LABS: HEMOGLOBIN A1C 5.2 % (4.3-6.0)
[2017-11-05 05:36] VITALS: BP 116/76; PULSE 101; RESP 16; TEMP 98.4; O2SAT 99
[2017-11-05] MEDS: NICOTINE 21 MG/24 HR PATCH T-DERMAL SCH (09:00)
[2017-11-05] MEDS: REMOVE OLD PATCH T-DERMAL SCH (09:00)
[2017-11-05] MEDS: ESCITALOPRAM OXALATE 10 MG TAB PO SCH (09:02)
[2017-11-05] MEDS: ARIPiprazole 5 MG TAB PO SCH (09:02)
[2017-11-05] MEDS: clonazePAM 1 MG TAB PO SCH ×2 (09:02→20:11)
--- NOTE | 2017-11-05 13:24 | HHI.PYPN ---
Subjective Remarks Patient was seen and case discussed with nursing. Patient has extensive thought blocking with a flat affect. Thought blocking improved since patient gets less nervous during the conversation. Patient has bizarre pentecostal delusions. She says she feels guilty for not believing in God and had an episode couple weeks ago where she feels she was supposed to . She then saw god's face. Patient says that the world is ending tomorrow. She denies auditory hallucinations or ideas of reference. Continues to make bizarre statements such as she does not want to talk to somebody nice. She's had that people can see God and she can't. Patient denies suicidal or homicidal ideation intent or plan Mental Status Examination Appearance: Dirty, Disheveled, Malodorous Consciousness: Alert Orientation: x4 Motor Activity: Normal gait Speech: Hesitant Language: Adequate, Perseveration Fund of Knowledge: Adequate Mood: Sad, Irritable Affect: Irritable Thought Process & Associations: Loose associations, Disorganized Thought Content: Bizarre thinking, Ideas of reference, Thought blocking, Delusional Hallucination Type: None Delusion Type: Bizarre, Paranoid Suicidal Ideation: No Suicidal Plan: No Suicidal Intention: No Homicidal Ideation: No Homicidal Plan: No Insight: Poor Judgment: Poor Results Vitals/IOs Vital Signs Date Time Temp Pulse Resp B/P (MAP) Pulse Ox O2 Delivery O2 Flow Rate FiO2 11/05/17 05:36 98.4 101 16 116/76 (89) 99 11/03/17 10:45 Room Air Assessment & Plan Problem List: (1) Brief psychotic disorder ICD Codes: F23 - Brief psychotic disorder Assessment & Plan Increase Abilify to 10 mg by mouth daily Justification for Cont. Inpt. Patient would decompensate in a less restrictive setting Request HC Surrog/Guard Advoc?: Yes Jr Contreras DO Nov 05, 2017 13:24
[2017-11-05 17:26] VITALS: BP 122/74; PULSE 84; RESP 16; TEMP 98; O2SAT 97
[2017-11-06 05:36] VITALS: BP 99/55; PULSE 98; RESP 16; TEMP 97.7; O2SAT 99
[2017-11-06] MEDS: clonazePAM 1 MG TAB PO SCH ×2 (08:43→21:26)
[2017-11-06] MEDS: ESCITALOPRAM OXALATE 10 MG TAB PO SCH (08:43)
[2017-11-06] MEDS: ARIPiprazole 10 MG TAB PO SCH (08:43)
[2017-11-06] MEDS: REMOVE OLD PATCH T-DERMAL SCH (08:55)
[2017-11-06] MEDS: NICOTINE 21 MG/24 HR PATCH T-DERMAL SCH (08:55)
--- NOTE | 2017-11-06 11:55 | HHI.PYPN ---
Subjective Remarks Patient was seen and case discussed with nursing. Patient is bit less anxious and more talkative. There is spontaneous speech. Thought blocking does predominate the conversation. Appears less psychotic today but remains religiously preoccupied. sHe is tolerating her higher dose of Abilify well. She becomes fixated on discharge at the end of the interview. Denies suicidal or homicidal ideation intent or plan Mental Status Examination Appearance: Dirty, Disheveled, Malodorous Consciousness: Alert Orientation: x4 Motor Activity: Normal gait Speech: Hesitant Language: Adequate, Perseveration Fund of Knowledge: Adequate Mood: Sad Affect: Irritable, Flat Thought Process & Associations: Loose associations, Disorganized Thought Content: Bizarre thinking, Ideas of reference, Thought blocking, Delusional Hallucination Type: None Delusion Type: Bizarre, Paranoid Suicidal Ideation: No Suicidal Plan: No Suicidal Intention: No Homicidal Ideation: No Homicidal Plan: No Insight: Poor Judgment: Poor Results Vitals/IOs Vital Signs Date Time Temp Pulse Resp B/P (MAP) Pulse Ox O2 Delivery O2 Flow Rate FiO2 11/06/17 05:36 97.7 98 16 99/55 (70) 99 11/03/17 10:45 Room Air Assessment & Plan Problem List: (1) Brief psychotic disorder ICD Codes: F23 - Brief psychotic disorder Assessment & Plan Continue current treatment plan Justification for Cont. Inpt. Patient will decompensate in a less restrictive setting Request HC Surrog/Guard Advoc?: Yes Jr Contreras DO Nov 06, 2017 11:55
[2017-11-06 18:32] VITALS: BP 100/70; PULSE 90; RESP 16; TEMP 98; O2SAT 100
[2017-11-07 05:38] VITALS: BP 99/55; PULSE 89; RESP 16; TEMP 98.1; O2SAT 97
[2017-11-07] MEDS: REMOVE OLD PATCH T-DERMAL SCH (09:00)
[2017-11-07] MEDS: NICOTINE 21 MG/24 HR PATCH T-DERMAL SCH (09:00)
[2017-11-07] MEDS: clonazePAM 1 MG TAB PO SCH ×3 (09:04→21:40)
[2017-11-07] MEDS: ARIPiprazole 10 MG TAB PO SCH (09:04)
[2017-11-07] MEDS: ESCITALOPRAM OXALATE 10 MG TAB PO SCH (09:04)
--- NOTE | 2017-11-07 10:43 | PD.TTN ---
Patient Problems 1. Discharge planning 2. Medication compliance 3. Knowledge deficit 4. Lack of coping skills Progress Toward Goals Provider Present: Dr. Dago Carmona Provider Input: Dr. Carmona has his treatment team meeting to discuss patient's treatment plan, discharge and medication. Patient continues to meet criteria. Patient will go home when stable. Nurse(s) Input: Patient's nurse reports patient is thought blocking, has delayed speech, presents internally stimulated, is religiously preoccupied. Patient is medication compliant. Patient is isolated to room. Psychiatric Counselors Present: Milena Workman [facility] Psych Therapist Input: Patient presents internally stimulated, has thought derailment, very distracted. Meets criteria at this time. Group Spec/RT/OT/TAPIA Present: Carlitos Ch OT Group Spec/RT/OT/TAPIA Input: Patient cannot initiate needs. Externally motivated to attend and then cannot tolerate groups. Milena Workman [facility] Nov 07, 2017 10:43
--- NOTE | 2017-11-07 11:16 | HHI.PYPN ---
Subjective Remarks Patient seen in day room with nurse Curiel, chart review, patient compliant medication, patient discussed with nurse, patient continues markedly distractible with significant thought blocking, does reluctantly acknowledges auditory hallucinations of a threatening somewhat spiritual behavior. There is also some focusing on how this is affecting her father. Patient is compliant with medications. patient is continuing on Klonopin at 1 mg twice a day. Will decrease that 2.5 mg every 8 hours. I also talked to patient's father after a visit with patient. He is concerned about his daughters well-being he recognize the continued psychosis, he also stated that he has a 20-year-old daughter is a drug addict. He is distraught over both his children Review of Systems Except as stated in HPI: all other systems reviewed are Neg Mental Status Examination Appearance: Dirty, Disheveled, Malodorous Consciousness: Alert Orientation: x4 Motor Activity: Normal gait Speech: Hesitant Language: Adequate, Perseveration Fund of Knowledge: Adequate Mood: Sad Affect: Irritable, Flat Thought Process & Associations: Loose associations, Disorganized Thought Content: Bizarre thinking, Ideas of reference, Thought blocking, Delusional Hallucination Type: None Delusion Type: Bizarre, Paranoid Suicidal Ideation: No Suicidal Plan: No Suicidal Intention: No Homicidal Ideation: No Homicidal Plan: No Insight: Poor Judgment: Poor Results Vitals/IOs Vital Signs Date Time Temp Pulse Resp B/P (MAP) Pulse Ox O2 Delivery O2 Flow Rate FiO2 11/07/17 05:38 98.1 89 16 99/55 (70) 97 11/03/17 10:45 Room Air Assessment & Plan Problem List: (1) Brief psychotic disorder ICD Codes: F23 - Brief psychotic disorder Assessment & Plan Estimated LOS: days patient continues psychotic delusional with significant command auditory hallucinations. Compliant medication. She medication adjustment of Justification for Cont. Inpt. At this time patient decompensated placed on lower level of care Discharge Planning Probable return home Request HC Surrog/Guard Advoc?: Yes Melchor Carmona MD Nov 07, 2017 11:16
[2017-11-07] MEDS ORDERED: PILL SPLITTER OTHER PRN (11:30)
[2017-11-07 18:24] VITALS: BP 114/59; PULSE 99; RESP 18; TEMP 97.2; O2SAT 97
[2017-11-08] MEDS: clonazePAM 1 MG TAB PO SCH ×3 (06:00→21:56)
[2017-11-08 06:11] VITALS: BP 95/59; PULSE 82; RESP 17; TEMP 98.1; O2SAT 96
[2017-11-08] MEDS: ARIPiprazole 10 MG TAB PO SCH ×2 (09:00→21:00)
[2017-11-08] MEDS: NICOTINE 21 MG/24 HR PATCH T-DERMAL SCH (09:00)
[2017-11-08] MEDS: REMOVE OLD PATCH T-DERMAL SCH (09:00)
[2017-11-08] MEDS: ESCITALOPRAM OXALATE 10 MG TAB PO SCH (09:00)
--- NOTE | 2017-11-08 13:51 | HHI.PYPN ---
Subjective Remarks Patient seen in Still with nurse Moisés and counselor Tammi, patient continues markedly psychomotor retarded her verbal responses a markedly delayed, should markedly distracted, she does reluctantly acknowledged auditory hallucinations but gets angry when doing so. Patient did state today that she was not discharged she would consider hurting herself gave an example of cutting herself. She also refused a medication this a.m. Will increase Abilify to 10 mg twice a day. Will arrange a meeting with patient's father for tomorrow morning 9:30 or 10 AM to discuss further care. It appears patient might be a candidate for a dual diagnosis program called [facility] in the [facility] Review of Systems Except as stated in HPI: all other systems reviewed are Neg Mental Status Examination Appearance: Dirty, Disheveled, Malodorous Consciousness: Alert Orientation: x4 Motor Activity: Normal gait Speech: Hesitant Language: Adequate, Perseveration Fund of Knowledge: Adequate Mood: Sad Affect: Irritable, Flat Thought Process & Associations: Loose associations, Disorganized Thought Content: Bizarre thinking, Ideas of reference, Thought blocking, Delusional Hallucination Type: None Delusion Type: Bizarre, Paranoid Suicidal Ideation: No Suicidal Plan: No Suicidal Intention: No Homicidal Ideation: No Homicidal Plan: No Insight: Poor Judgment: Poor Results Vitals/IOs Vital Signs Date Time Temp Pulse Resp B/P (MAP) Pulse Ox O2 Delivery O2 Flow Rate FiO2 11/08/17 06:11 98.1 82 17 95/59 (71) 96 Intake and Output 11/08/17 11/08/17 11/09/17 08:00 16:00 00:00 Intake Total 120 ml Balance 120 ml Assessment & Plan Problem List: (1) Brief psychotic disorder ICD Codes: F23 - Brief psychotic disorder Assessment & Plan Estimated LOS: days patient continues psychotic delusional, making threats to harm self. She medication adjustment above. We'll meet with father tomorrow morning Justification for Cont. Inpt. This time patient will decompensate a placed a lower level of care Discharge Planning To be determined Request HC Surrog/Guard Advoc?: Yes Melchor Carmona MD Nov 08, 2017 13:51
[2017-11-08 18:18] VITALS: BP 120/77; PULSE 125; RESP 20; TEMP 98.1; O2SAT 96
[2017-11-09] MEDS: clonazePAM 1 MG TAB PO SCH ×3 (06:00→21:39)
[2017-11-09] MEDS: ARIPiprazole 10 MG TAB PO SCH ×2 (08:38→21:00)
[2017-11-09] MEDS: ESCITALOPRAM OXALATE 10 MG TAB PO SCH (08:38)
[2017-11-09] MEDS: REMOVE OLD PATCH T-DERMAL SCH (09:00)
[2017-11-09] MEDS: NICOTINE 21 MG/24 HR PATCH T-DERMAL SCH (09:00)
--- NOTE | 2017-11-09 13:07 | HHI.PYPN ---
Subjective Remarks Medical patient's father and uncle, discussed diagnosis treatment medications discharge planning. Father acknowledges some mental health history in the family. Also acknowledges daughters miss use of substances. We also discussed possible referral to the [facility] once patient stabilizes. Patient scheduled for [employer] tomorrow. Patient then seen in her room with nurse will, patient laying in bed with covers to her chin. She is alert continued marked thought blocking, distractible, though she is ill with focus somewhat limited discussed the possibility of a transfer to [facility] when stable. For now continue treatment. Patient scheduled for [employer] [address] tomorrow Review of Systems Except as stated in HPI: all other systems reviewed are Neg Mental Status Examination Appearance: Dirty, Disheveled, Malodorous Consciousness: Alert Orientation: x4 Motor Activity: Normal gait Speech: Hesitant Language: Adequate, Perseveration Fund of Knowledge: Adequate Mood: Sad Affect: Irritable, Flat Thought Process & Associations: Loose associations, Disorganized Thought Content: Bizarre thinking, Ideas of reference, Thought blocking, Delusional Hallucination Type: None Delusion Type: Bizarre, Paranoid Suicidal Ideation: No Suicidal Plan: No Suicidal Intention: No Homicidal Ideation: No Homicidal Plan: No Insight: Poor Judgment: Poor Results Vitals/IOs Vital Signs Date Time Temp Pulse Resp B/P (MAP) Pulse Ox O2 Delivery O2 Flow Rate FiO2 11/08/17 18:18 98.1 125 20 120/77 (91) 96 Assessment & Plan Problem List: (1) Brief psychotic disorder ICD Codes: F23 - Brief psychotic disorder Assessment & Plan Estimated LOS: days patient continue psychotic with auditory hallucinations, she is guarded vigilant and paranoid Justification for Cont. Inpt. At this time patient will decompensate if placed in the lower level of care Discharge Planning Consider possible transfer to [facility] on further stabilized Request HC Surrog/Guard Advoc?: Yes Melchor Carmona MD Nov 09, 2017 13:07
[2017-11-09 16:21] VITALS: BP 74/40; PULSE 92; RESP 18; TEMP 98.2; O2SAT 99
[2017-11-09 16:49] VITALS: BP 105/58; PULSE 118; O2SAT 97
[2017-11-10 05:15] VITALS: BP 98/54; PULSE 74; RESP 16; TEMP 98.1; O2SAT 98
[2017-11-10] MEDS: clonazePAM 1 MG TAB PO SCH ×4 (06:00→21:11)
[2017-11-10] MEDS: ARIPiprazole 10 MG TAB PO SCH ×2 (08:44→21:05)
[2017-11-10] MEDS: ESCITALOPRAM OXALATE 10 MG TAB PO SCH (08:44)
[2017-11-10] MEDS: NICOTINE 21 MG/24 HR PATCH T-DERMAL SCH (08:46)
[2017-11-10] MEDS: REMOVE OLD PATCH T-DERMAL SCH (09:00)
--- NOTE | 2017-11-10 11:14 | HHI.PYPN ---
Subjective Remarks Patient seen in her room with floor staff, chart review, patient discussed with nurse, patient showing mixed compliance medication. Patient remains diffusely confused with delayed responses and thought blocking. Patient was then seen in [employer] [address] with her father uncle and her aunt. Patient's case was continued for 4 weeks. Father to be health care surrogate. Patient continued to exhibit her thought blocking distractibility and overall disorganization and court Review of Systems Except as stated in HPI: all other systems reviewed are Neg Mental Status Examination Appearance: Dirty, Disheveled, Malodorous Consciousness: Alert Orientation: x4 Motor Activity: Normal gait Speech: Hesitant Language: Adequate, Perseveration Fund of Knowledge: Adequate Mood: Sad Affect: Irritable, Flat Thought Process & Associations: Loose associations, Disorganized Thought Content: Bizarre thinking, Ideas of reference, Thought blocking, Delusional Hallucination Type: None Delusion Type: Bizarre, Paranoid Suicidal Ideation: No Suicidal Plan: No Suicidal Intention: No Homicidal Ideation: No Homicidal Plan: No Insight: Poor Judgment: Poor Results Vitals/IOs Vital Signs Date Time Temp Pulse Resp B/P (MAP) Pulse Ox O2 Delivery O2 Flow Rate FiO2 11/10/17 05:15 98.1 74 16 98/54 (69) 98 Assessment & Plan Problem List: (1) Brief psychotic disorder ICD Codes: F23 - Brief psychotic disorder Assessment & Plan Estimated LOS: days patient [employer] was continued for 4 weeks. Patient continues diffusely disorganized confused with thought blocking and auditory hallucinations Justification for Cont. Inpt. At this time patient will decompensate if placed in the lower level of care Discharge Planning Probable return home to family Request HC Surrog/Guard Advoc?: Yes Melchor Carmona MD Nov 10, 2017 11:14
[2017-11-10 17:46] VITALS: BP 118/69; PULSE 107; RESP 16; TEMP 98.2; O2SAT 97
[2017-11-11 05:58] VITALS: BP 95/56; PULSE 76; RESP 17; TEMP 97.3; O2SAT 98
[2017-11-11] MEDS: clonazePAM 1 MG TAB PO SCH ×3 (06:17→21:41)
[2017-11-11] MEDS: NICOTINE 21 MG/24 HR PATCH T-DERMAL SCH (09:00)
[2017-11-11] MEDS: REMOVE OLD PATCH T-DERMAL SCH (09:00)
[2017-11-11] MEDS: ESCITALOPRAM OXALATE 10 MG TAB PO SCH (09:19)
[2017-11-11] MEDS: ARIPiprazole 10 MG TAB PO SCH (09:19)
--- NOTE | 2017-11-11 14:23 | HHI.PYPN ---
Subjective Remarks Patient seen in her room with floor staff, chart review, patient showing mixed compliance medications, patient discussed with nurse. Patient is to have delayed responses to my questions. Continues vague and oblique related to any auditory hallucinations. Will increase Abilify to 10 mg a.m. 50 mg at bedtime Review of Systems Except as stated in HPI: all other systems reviewed are Neg Mental Status Examination Appearance: Dirty, Disheveled, Malodorous Consciousness: Alert Orientation: x4 Motor Activity: Normal gait Speech: Hesitant Language: Adequate, Perseveration Fund of Knowledge: Adequate Mood: Sad Affect: Irritable, Flat Thought Process & Associations: Loose associations, Disorganized Thought Content: Bizarre thinking, Ideas of reference, Thought blocking, Delusional Hallucination Type: None Delusion Type: Bizarre, Paranoid Suicidal Ideation: No Suicidal Plan: No Suicidal Intention: No Homicidal Ideation: No Homicidal Plan: No Insight: Poor Judgment: Poor Results Vitals/IOs Vital Signs Date Time Temp Pulse Resp B/P (MAP) Pulse Ox O2 Delivery O2 Flow Rate FiO2 11/11/17 05:58 97.3 76 17 95/56 (69) 98 Assessment & Plan Problem List: (1) Brief psychotic disorder ICD Codes: F23 - Brief psychotic disorder Assessment & Plan Estimated LOS: days patient continue psychotic with vague auditory hallucinations a marked thought blocking. She medication adjustments above Justification for Cont. Inpt. This time patient decompensated placed a lower level of care Discharge Planning To be determined Request HC Surrog/Guard Advoc?: Yes Melchor Carmona MD Nov 11, 2017 14:23
[2017-11-11 17:12] VITALS: PULSE 79; RESP 18; TEMP 98; O2SAT 95
[2017-11-11] MEDS: ARIPiprazole 15 MG TAB PO SCH (21:41)
[2017-11-11] MEDS: hydrOXYzine HCL 50 MG TAB PO PRN (21:44)
[2017-11-12 05:47] VITALS: BP 99/52; PULSE 76; RESP 15; TEMP 97.6; O2SAT 97
[2017-11-12] MEDS: clonazePAM 1 MG TAB PO SCH ×3 (06:13→21:36)
[2017-11-12] MEDS: REMOVE OLD PATCH T-DERMAL SCH (09:00)
[2017-11-12] MEDS: ARIPiprazole 10 MG TAB PO SCH ×2 (09:00→10:17)
[2017-11-12] MEDS: NICOTINE 21 MG/24 HR PATCH T-DERMAL SCH (09:00)
[2017-11-12] MEDS: ESCITALOPRAM OXALATE 10 MG TAB PO SCH (09:04)
--- NOTE | 2017-11-12 10:08 | HHI.PYPN ---
Subjective Remarks Reviewed electronic medical record and discussed case with staff. Follow-up performed in patient's room with nurse present. Patient lying in bed awake and alert. Patient was resistant to taking Abilify. She reported that she feels that "clouds my thinking". Patient speech is slow and halted, disorganized, and at times she fails to complete her thoughts. She seems to be word searching. She may have some thought blocking and be internally stimulated although she denies it. Mental Status Examination Appearance: Disheveled, Malodorous Consciousness: Alert Orientation: x4 Motor Activity: Normal gait Speech: Hesitant Language: Adequate, Perseveration Fund of Knowledge: Adequate Mood: Sad Affect: Irritable, Flat Thought Process & Associations: Loose associations, Disorganized Thought Content: Bizarre thinking, Ideas of reference, Thought blocking, Delusional Hallucination Type: None Delusion Type: Bizarre, Paranoid Suicidal Ideation: No Suicidal Plan: No Suicidal Intention: No Homicidal Ideation: No Homicidal Plan: No Insight: Poor Judgment: Poor Results Vitals/IOs Vital Signs Date Time Temp Pulse Resp B/P (MAP) Pulse Ox O2 Delivery O2 Flow Rate FiO2 11/12/17 05:47 97.6 76 15 99/52 (16) 97 Assessment & Plan Problem List: (1) Brief psychotic disorder ICD Codes: F23 - Brief psychotic disorder Assessment & Plan Estimated LOS: Patient remains psychotic. Her thought process is still extremely disorganized. We will continue with treatment in an effort to psychiatrically stabilize her. Justification for Cont. Inpt. Moving this patient to a lower level of care would likely result in decompensation. She lacks the capacity to provide self-care at this time. Request HC Surrog/Guard Advoc?: Yes Letty Stephen Nov 12, 2017 10:08
[2017-11-12] MEDS: ALUMINUM/MAGNESIUM/SIMETH 30 ML CUP PO PRN (17:05)
[2017-11-12 17:38] VITALS: BP 120/61; PULSE 116; RESP 16; TEMP 98.1; O2SAT 96
[2017-11-12] MEDS: hydrOXYzine HCL 50 MG TAB PO PRN (21:36)
[2017-11-12] MEDS: ARIPiprazole 15 MG TAB PO SCH (21:36)
[2017-11-13] MEDS: clonazePAM 1 MG TAB PO SCH ×3 (05:25→22:08)
[2017-11-13 05:43] VITALS: BP 106/53; PULSE 80; RESP 16; TEMP 97.7; O2SAT 98
[2017-11-13] MEDS: REMOVE OLD PATCH T-DERMAL SCH (09:00)
[2017-11-13] MEDS: NICOTINE 21 MG/24 HR PATCH T-DERMAL SCH (09:00)
[2017-11-13] MEDS: ARIPiprazole 10 MG TAB PO SCH (09:14)
[2017-11-13] MEDS: ESCITALOPRAM OXALATE 10 MG TAB PO SCH (09:14)
--- NOTE | 2017-11-13 14:33 | HHI.PYPN ---
Subjective Remarks Reviewed electronic medical record and discussed case with staff. Nurse advises patient had related to her earlier that she felt she could control the weather. She also relates that the patient remains resistant to taking her Abilify. She takes all of the other medications without question but specifically is resistant to the Abilify. Patient was evaluated in the exam room with nurse present. Discussed patient's earlier statement with nurse about the weather. Patient states that she felt "it brain yesterday because I was sad". She states that she is slept okay her appetite is been good. She does report when asked about auditory hallucinations that she does not hear voices however she states "I hear God". When asked to elaborate she states, " he talks to me about the choices I should be making and allowing others to help me". Initially, her mood seemed improved and her affect seemed better. However , as the interview progressed patient began to shut down. She seemed to be internally stimulated. She had trouble answering several personal questions and would comments, "I do not feel comfortable talking about that". She does relate that her father is coming to see her today and she is happy about that. She reports that she is very close with her mother. Mental Status Examination Appearance: Disheveled, Malodorous Consciousness: Alert Orientation: x4 Motor Activity: Normal gait Speech: Hesitant Language: Adequate, Perseveration Fund of Knowledge: Adequate Mood: Other (Initially good, became anxious and sad with questioning) Affect: Flat Thought Process & Associations: Loose associations, Disorganized Thought Content: Bizarre thinking, Ideas of reference, Thought blocking, Delusional Hallucination Type: None Delusion Type: Bizarre, Paranoid Suicidal Ideation: No Suicidal Plan: No Suicidal Intention: No Homicidal Ideation: No Homicidal Plan: No Insight: Poor Judgment: Poor Results Vitals/IOs Vital Signs Date Time Temp Pulse Resp B/P (MAP) Pulse Ox O2 Delivery O2 Flow Rate FiO2 11/13/17 05:43 97.7 80 16 106/53 (70) 98 Assessment & Plan Problem List: (1) Brief psychotic disorder ICD Codes: F23 - Brief psychotic disorder Assessment & Plan Estimated LOS: Patient continues to have some delusions and bizarre thinking. Will continue with treatment plan as ordered by psychiatrist. Days Justification for Cont. Inpt. Likely that this patient would decompensate if moved to a lower level of care. Request HC Surrog/Guard Advoc?: Yes Letty Stephen Nov 13, 2017 14:33
[2017-11-13 18:22] VITALS: BP 107/62; PULSE 105; RESP 18; TEMP 97.4; O2SAT 98
[2017-11-13] MEDS: ARIPiprazole 15 MG TAB PO SCH (22:07)
[2017-11-14] MEDS: clonazePAM 1 MG TAB PO SCH ×3 (05:37→21:55)
[2017-11-14 06:23] VITALS: BP 100/55; PULSE 73; RESP 16; TEMP 97.6; O2SAT 99
[2017-11-14] MEDS: ARIPiprazole 10 MG TAB PO SCH (09:51)
[2017-11-14] MEDS: ESCITALOPRAM OXALATE 10 MG TAB PO SCH (09:51)
[2017-11-14] MEDS: NICOTINE 21 MG/24 HR PATCH T-DERMAL SCH (09:54)
[2017-11-14] MEDS: REMOVE OLD PATCH T-DERMAL SCH (09:55)
--- NOTE | 2017-11-14 15:44 | HHI.PYPN ---
Subjective Remarks Patient seen in the treatment room with nurse Dean, chart review, patient compliant medications, patient discussed with nurse. Patient continues quite still with slow movement slow responses, marked thought blocking. Saying she hears God. Her MRSA somewhat tangential but overall fairly well goal oriented. She does denies suicidality.. Will decrease schedule Klonopin to twice a day Review of Systems Except as stated in HPI: all other systems reviewed are Neg Mental Status Examination Appearance: Disheveled, Malodorous Consciousness: Alert Orientation: x4 Motor Activity: Normal gait Speech: Hesitant Language: Adequate, Perseveration Fund of Knowledge: Adequate Mood: Other (Initially good, became anxious and sad with questioning) Affect: Flat Thought Process & Associations: Loose associations, Disorganized Thought Content: Bizarre thinking, Ideas of reference, Thought blocking, Delusional Hallucination Type: None Delusion Type: Bizarre, Paranoid Suicidal Ideation: No Suicidal Plan: No Suicidal Intention: No Homicidal Ideation: No Homicidal Plan: No Insight: Poor Judgment: Poor Results Vitals/IOs Vital Signs Date Time Temp Pulse Resp B/P (MAP) Pulse Ox O2 Delivery O2 Flow Rate FiO2 11/14/17 06:23 97.6 73 16 100/55 (70) 99 Intake and Output 11/14/17 11/14/17 11/15/17 08:00 16:00 00:00 Intake Total 240 ml Balance 240 ml Assessment & Plan Problem List: (1) Brief psychotic disorder ICD Codes: F23 - Brief psychotic disorder Assessment & Plan Estimated LOS: days patient remains somewhat psychotic vague auditory hallucinations, also continues with marked delayed responses will decrease schedule Klonopin to twice a day Justification for Cont. Inpt. At this time patient decompensated placed on lower level of care Discharge Planning Return home with family Request HC Surrog/Guard Advoc?: Yes Melchor Carmona MD Nov 14, 2017 15:44
[2017-11-14 16:44] VITALS: BP 103/62; PULSE 92; RESP 18; TEMP 97.1; O2SAT 99
[2017-11-14] MEDS: ARIPiprazole 15 MG TAB PO SCH (21:51)
[2017-11-15 06:00] VITALS: BP 86/51; PULSE 72; RESP 14; TEMP 97.7; O2SAT 98
[2017-11-15] MEDS: ESCITALOPRAM OXALATE 10 MG TAB PO SCH (08:27)
[2017-11-15] MEDS: ARIPiprazole 10 MG TAB PO SCH ×2 (08:30→16:49)
[2017-11-15] MEDS: clonazePAM 1 MG TAB PO SCH ×2 (08:30→20:38)
[2017-11-15] MEDS: NICOTINE 21 MG/24 HR PATCH T-DERMAL SCH (08:31)
[2017-11-15] MEDS: REMOVE OLD PATCH T-DERMAL SCH (08:31)
--- NOTE | 2017-11-15 13:43 | HHI.PYPN ---
Subjective Remarks Reviewed electronic medical record and discussed case with staff. Follow-up was performed and treatment room with nurse present. Her nurse advised that she refused to take her Klonopin and Abilify this morning. Patient states that she "believes that the Abilify is slowing her down". She states that she will take the Lexapro but did not like taking the Abilify. Explained to patient that we have seen improvement in her mood and affect since her arrival, and she has been compliant with medications up until now. I advised her that a wiser course of action may be to comply with the medication today and discuss her concerns with Dr. Carmona tomorrow morning. She does seem to be more interactive with staff, and more intrusive with staff as well. Overall, there seems to be improvement in her thought process and her speech seems to be a more normal susan. She still has brief periods where she seems to be internally stimulated or possibly thought blocking, but they seem to be fewer. Mental Status Examination Appearance: Disheveled, Malodorous Consciousness: Alert Orientation: x4 Motor Activity: Normal gait Speech: Hesitant Language: Adequate, Perseveration Fund of Knowledge: Adequate Mood: Other (Initially good, became anxious and sad with questioning) Affect: Flat Thought Process & Associations: Loose associations, Disorganized Thought Content: Bizarre thinking, Ideas of reference, Thought blocking, Delusional Hallucination Type: None Delusion Type: Bizarre, Paranoid Suicidal Ideation: No Suicidal Plan: No Suicidal Intention: No Homicidal Ideation: No Homicidal Plan: No Insight: Poor Judgment: Poor Results Vitals/IOs Vital Signs Date Time Temp Pulse Resp B/P (MAP) Pulse Ox O2 Delivery O2 Flow Rate FiO2 11/15/17 06:00 97.7 72 14 86/51 (63) 98 Intake and Output 11/15/17 11/15/17 11/16/17 08:00 16:00 00:00 Intake Total 360 ml Balance 360 ml Assessment & Plan Problem List: (1) Brief psychotic disorder ICD Codes: F23 - Brief psychotic disorder Assessment & Plan Estimated LOS: Continue with treatment. Some improvement noted however, today patient refusing to take some of her medications. Days Justification for Cont. Inpt. Moving this patient to a lower level of care would likely result in a decompensation. Request HC Surrog/Guard Advoc?: Yes Letty Stephen Nov 15, 2017 13:43
[2017-11-15 18:00] VITALS: BP_SYST 114; BP_SYST 90; BP_DIAS 48; BP_DIAS 80; PULSE 63; PULSE 92; RESP 17; TEMP 97.6; TEMP 97.7; O2SAT 100; O2SAT 98
[2017-11-15] MEDS: ARIPiprazole 15 MG TAB PO SCH (20:38)
[2017-11-16 05:54] VITALS: BP 97/54; PULSE 72; RESP 19; TEMP 97.9; O2SAT 96
[2017-11-16] MEDS: REMOVE OLD PATCH T-DERMAL SCH (09:00)
[2017-11-16] MEDS: ESCITALOPRAM OXALATE 10 MG TAB PO SCH (09:21)
[2017-11-16] MEDS: ARIPiprazole 10 MG TAB PO SCH (09:22)
[2017-11-16] MEDS: clonazePAM 1 MG TAB PO SCH ×2 (09:23→20:33)
[2017-11-16] MEDS: NICOTINE 21 MG/24 HR PATCH T-DERMAL SCH (09:28)
--- NOTE | 2017-11-16 10:47 | PD.TTN ---
Patient Problems 1. Discharge planning 2. Medication compliance 3. Knowledge deficit 4. Lack of coping skills Progress Toward Goals Provider Present: Dr. Dago Carmona Provider Input: 11/16/17 - Patient remains paranoid, thought blocking, denies voices. Patient father wants the patient to return home when stable. Dr. Carmona has his treatment team meeting to discuss patient's treatment plan, discharge and medication. Patient continues to meet criteria. Patient will go home when stable. Nurse(s) Input: Patient's nurse reports patient is thought blocking, has delayed speech, presents internally stimulated, is religiously preoccupied. Patient is medication compliant. Patient is isolated to room. Psychiatric Counselors Present: Mil[facility] Workman [facility], Maria G Armijo [facility] Psych Therapist Input: 11/16/17 - [facility] is holding a bed for this patient, however, the patient must be willing to enter their program. Patient presents internally stimulated, has thought derailment, very distracted. Meets criteria at this time. Group Spec/RT/OT/TAPIA Present: JOSE Nolan, Carlitos Ch, OT Group Spec/RT/OT/TAPIA Input: 11/16/17 - Patient attends group activities with good participation. Patient cannot initiate needs. Externally motivated to attend and then cannot tolerate groups. Discharge Plan SMA 11/16/17 - Patient will return home to her father;s house, or enter [facility] treatment enter for further stabilization. Maria G ArmijoReva Nov 16, 2017 10:47
--- NOTE | 2017-11-16 14:07 | HHI.PYPN ---
Subjective Remarks Patient seen in [place] of floor staff, chart reviewed, patient compliant medications, patient discussed with nurse. Patient continues calm, somewhat blunted affect, continues with thought blocking, distractibility, she is vague about auditory hallucinations but that our some type of voices in her head. She did state "feels god is directing me" we also discussed the possibility of a 30 day dual diagnosis program. Today she is refusing to go to a stated that she is feeling all right. However with some reluctance she agreed to have a meeting with her father to discuss placement issues medication living situation etc. We'll attempt to get such a meeting the next few days Review of Systems Except as stated in HPI: all other systems reviewed are Neg Mental Status Examination Appearance: Disheveled, Malodorous Consciousness: Alert Orientation: x4 Motor Activity: Normal gait Speech: Hesitant Language: Adequate, Perseveration Fund of Knowledge: Adequate Mood: Other (Initially good, became anxious and sad with questioning) Affect: Flat Thought Process & Associations: Loose associations, Disorganized Thought Content: Bizarre thinking, Ideas of reference, Thought blocking, Delusional Hallucination Type: None Delusion Type: Bizarre, Paranoid Suicidal Ideation: No Suicidal Plan: No Suicidal Intention: No Homicidal Ideation: No Homicidal Plan: No Insight: Poor Judgment: Poor Results Vitals/IOs Vital Signs Date Time Temp Pulse Resp B/P (MAP) Pulse Ox O2 Delivery O2 Flow Rate FiO2 11/16/17 05:54 97.9 72 19 97/54 (68) 96 Assessment & Plan Problem List: (1) Brief psychotic disorder ICD Codes: F23 - Brief psychotic disorder Assessment & Plan Estimated LOS: days patient continue psychotic with thought blocking an arterial hallucinations. Showing some resistance now to possible treatment recommendations. We will attempt her arrange meetings with patient's family Justification for Cont. Inpt. This time patient will decompensate if placed in a lower level of care Discharge Planning To be determined Request HC Surrog/Guard Advoc?: Yes Melchor Carmona MD Nov 16, 2017 14:07
[2017-11-16 17:06] VITALS: BP 118/66; PULSE 88; RESP 18; TEMP 97.7; O2SAT 99
[2017-11-16] MEDS: ARIPiprazole 15 MG TAB PO SCH (20:33)
[2017-11-17 05:39] VITALS: BP 102/60; PULSE 67; RESP 16; TEMP 98; O2SAT 96
[2017-11-17] MEDS: REMOVE OLD PATCH T-DERMAL SCH (09:00)
--- NOTE | 2017-11-17 09:25 | HHI.PYPN ---
Subjective Remarks Patient seen in her room with nurse Walsh chart review patient discussed with nurse. Staff states that patient's father visited last night, he told staff that his daughter admitted to him that she has been cheeking her medications. Patient seen in her room she continues with severe thought blocking marked delays in her responses that are worse. Brief and at times quite circumstantial. Appears to be continued auditory hallucinations. I did discuss with her medication adjustments. She showed some resistance to this or bright feel, when considering the lack of improvement with the Abilify that a change in medication is indicated will discontinue the Abilify start patient on Respinol M tab 1 mg twice a day we'll also decrease the scheduled Klonopin 2.5 mg at at bedtime I did talk with her father about this and he gave us permission for the above medication changes Review of Systems Except as stated in HPI: all other systems reviewed are Neg Mental Status Examination Appearance: Disheveled, Malodorous Consciousness: Alert Orientation: x4 Motor Activity: Normal gait Speech: Hesitant Language: Adequate, Perseveration Fund of Knowledge: Adequate Mood: Other (Initially good, became anxious and sad with questioning) Affect: Flat Thought Process & Associations: Loose associations, Disorganized Thought Content: Bizarre thinking, Ideas of reference, Thought blocking, Delusional Hallucination Type: None Delusion Type: Bizarre, Paranoid Suicidal Ideation: No Suicidal Plan: No Suicidal Intention: No Homicidal Ideation: No Homicidal Plan: No Insight: Poor Judgment: Poor Results Vitals/IOs Vital Signs Date Time Temp Pulse Resp B/P (MAP) Pulse Ox O2 Delivery O2 Flow Rate FiO2 11/17/17 05:39 98.0 67 16 102/60 (74) 96 Assessment & Plan Problem List: (1) Brief psychotic disorder ICD Codes: F23 - Brief psychotic disorder Assessment & Plan Estimated LOS: days patient continue psychotic with significant thought blocking and delayed responses, remains auditory hallucinations, patient showing noncompliance of medication by cheeking it. We'll discontinue Abilify start Respinol M tab 1 mg twice a day, and also decrease schedule Klonopin 2.5 at at bedtime all the above being done with permission of patient's father Justification for Cont. Inpt. At this time patient would decompensated placed in a lower level of care Discharge Planning Hopefully to placement with her Request HC Surrog/Guard Advoc?: Yes Melchor Carmona MD Nov 17, 2017 09:25
[2017-11-17] MEDS: risperiDONE ODT 1 MG TAB PO SCH ×2 (10:13→20:45)
[2017-11-17] MEDS: ESCITALOPRAM OXALATE 10 MG TAB PO SCH (10:16)
[2017-11-17] MEDS: NICOTINE 21 MG/24 HR PATCH T-DERMAL SCH (10:24)
[2017-11-17 17:03] VITALS: BP 114/59; PULSE 107; RESP 16; TEMP 98; O2SAT 100
[2017-11-17] MEDS: ALUMINUM/MAGNESIUM/SIMETH 30 ML CUP PO PRN (17:35)
[2017-11-17] MEDS: ARIPiprazole 15 MG TAB PO SCH (20:41)
[2017-11-17] MEDS: clonazePAM 0.5 MG TAB PO SCH (20:43)
[2017-11-18 05:32] VITALS: BP 94/52; PULSE 73; RESP 16; TEMP 97.8; O2SAT 98
[2017-11-18] MEDS: ESCITALOPRAM OXALATE 10 MG TAB PO SCH (08:42)
[2017-11-18] MEDS: risperiDONE ODT 1 MG TAB PO SCH ×3 (08:50→20:59)
[2017-11-18] MEDS: REMOVE OLD PATCH T-DERMAL SCH (08:51)
[2017-11-18] MEDS: NICOTINE 21 MG/24 HR PATCH T-DERMAL SCH (08:54)
[2017-11-18] MEDS: HALOPERIDOL LACTATE 5 MG/ML AMP IM SCH ×2 (14:15→21:00)
--- NOTE | 2017-11-18 16:05 | HHI.PYPN ---
Subjective Remarks Reviewed electronic medical record and discussed case with staff. Nurse reports patient refused her morning medications. Consulted with Dr. Carmona, patient ordered IM Haldol 5 mg if she refuses to take her p.o. Risperdal. Consent was obtained from patient's guardian, her father Tim. Follow-up was conducted in patient's room with nurse present. When patient was asked why she refused to take the medication she began stuttering and stating "I believe that I will need the medication". When I explained to her that she is court ordered to take medication at this time and her father and agreed with the injection patient's speech cleared up and became much more fluent. Patient then requested to have medication changed to Abilify. Spoke with Dr. Carmona who desires her to be continued on the Risperdal. Patient was informed of Dr. Carmona's decision. She then complied with taking her medication without difficulty. Mental Status Examination Appearance: Disheveled, Malodorous Consciousness: Alert Orientation: x4 Motor Activity: Normal gait Speech: Hesitant Language: Adequate Fund of Knowledge: Adequate Memory: Unremarkable Mood: Appropriate, Other (Initially good, became anxious and sad with questioning) Affect: Appropriate, Flat Thought Process & Associations: Intact, Loose associations, Disorganized ( Selectively) Thought Content: Bizarre thinking, Ideas of reference, Thought blocking, Delusional Hallucination Type: None Delusion Type: Bizarre, Paranoid Suicidal Ideation: No Suicidal Plan: No Suicidal Intention: No Homicidal Ideation: No Homicidal Plan: No Insight: Poor Judgment: Poor Results Vitals/IOs Vital Signs Date Time Temp Pulse Resp B/P (MAP) Pulse Ox O2 Delivery O2 Flow Rate FiO2 11/18/17 05:32 97.8 73 16 94/52 (66 98 Assessment & Plan Problem List: (1) Brief psychotic disorder ICD Codes: F23 - Brief psychotic disorder Assessment & Plan Estimated LOS: Patient seems to have convenient intermittent stuttering. She still occasionally seems internally stimulated and presents with thought blocking from time to time. We will continue with treatment plan. Days Justification for Cont. Inpt. Moving this patient to a lower level of care would result in a decompensation. Patient will continue to be medicated in an effort to psychiatrically stabilize her. Request HC Surrog/Guard Advoc?: Yes Letty Stephen Nov 18, 2017 16:05
[2017-11-18 17:25] VITALS: BP 102/56; PULSE 103; RESP 17; TEMP 98.1; O2SAT 98
[2017-11-18] MEDS: clonazePAM 0.5 MG TAB PO SCH (20:59)
[2017-11-19 05:54] VITALS: BP 102/58; PULSE 72; RESP 16; TEMP 98; O2SAT 98
[2017-11-19] MEDS: ESCITALOPRAM OXALATE 10 MG TAB PO SCH (08:06)
[2017-11-19] MEDS: risperiDONE ODT 1 MG TAB PO SCH ×2 (08:06→20:50)
[2017-11-19] MEDS: REMOVE OLD PATCH T-DERMAL SCH (08:07)
[2017-11-19] MEDS: NICOTINE 21 MG/24 HR PATCH T-DERMAL SCH (08:07)
[2017-11-19] MEDS: HALOPERIDOL LACTATE 5 MG/ML AMP IM SCH ×2 (08:11→20:51)
--- NOTE | 2017-11-19 11:52 | HHI.PYPN ---
Subjective Remarks Patient was seen and case discussed with nursing. Patient continues with profound thought blocking. Affect remains flat. No delusions were elicited today. Patient denies any messages or auditory hallucinations. She is compliant with her medications. Seclusive to self. She is now compliant with medications Mental Status Examination Appearance: Disheveled, Malodorous Consciousness: Alert Orientation: x4 Motor Activity: Normal gait Speech: Hesitant Language: Adequate Fund of Knowledge: Adequate Memory: Unremarkable Mood: Appropriate, Other (Initially good, became anxious and sad with questioning) Affect: Appropriate, Flat Thought Process & Associations: Intact, Loose associations, Disorganized ( Selectively) Thought Content: Bizarre thinking, Thought blocking, Delusional Hallucination Type: None Delusion Type: Bizarre, Paranoid Suicidal Ideation: No Suicidal Plan: No Suicidal Intention: No Homicidal Ideation: No Homicidal Plan: No Insight: Poor Judgment: Poor Results Vitals/IOs Vital Signs Date Time Temp Pulse Resp B/P (MAP) Pulse Ox O2 Delivery O2 Flow Rate FiO2 11/19/17 05:54 98.0 72 16 102/58 (73) 98 Assessment & Plan Problem List: (1) Brief psychotic disorder ICD Codes: F23 - Brief psychotic disorder Assessment & Plan Continue current treatment plan Justification for Cont. Inpt. Patient would decompensate in a less restrictive setting Request HC Surrog/Guard Advoc?: Yes Jr Contreras DO Nov 19, 2017 11:52
[2017-11-19 17:57] VITALS: BP 122/62; PULSE 78; RESP 17; TEMP 97.7; O2SAT 100
[2017-11-19] MEDS: clonazePAM 0.5 MG TAB PO SCH (20:50)
[2017-11-20 05:17] VITALS: BP 101/58; PULSE 81; RESP 16; TEMP 97.7; O2SAT 98
[2017-11-20] MEDS: risperiDONE ODT 1 MG TAB PO SCH ×2 (08:15→20:14)
[2017-11-20] MEDS: NICOTINE 21 MG/24 HR PATCH T-DERMAL SCH (08:15)
[2017-11-20] MEDS: ESCITALOPRAM OXALATE 10 MG TAB PO SCH (08:15)
[2017-11-20] MEDS: REMOVE OLD PATCH T-DERMAL SCH (08:16)
[2017-11-20] MEDS: HALOPERIDOL LACTATE 5 MG/ML AMP IM SCH ×2 (09:00→20:14)
--- NOTE | 2017-11-20 11:23 | HHI.PYPN ---
Subjective Remarks Patient was seen and case discussed with nursing. Patient remains with severe thought blocking. She is able to start a sentence but finishes it a couple minutes later with long periods of silence. Affect remains flat and patient is internally stimulated. Seclusive to self. Patient says that she has bad dreams but could not specify. She was asked to write a letter about what the dreams are Mental Status Examination Appearance: Disheveled, Malodorous Consciousness: Alert Orientation: x4 Motor Activity: Normal gait Speech: Hesitant Language: Adequate Fund of Knowledge: Adequate Memory: Unremarkable Mood: Appropriate, Other (Initially good, became anxious and sad with questioning) Affect: Appropriate, Flat Thought Process & Associations: Intact, Loose associations, Disorganized ( Selectively) Thought Content: Bizarre thinking, Thought blocking, Delusional Hallucination Type: None Delusion Type: Bizarre, Paranoid Suicidal Ideation: No Suicidal Plan: No Suicidal Intention: No Homicidal Ideation: No Homicidal Plan: No Insight: Poor Judgment: Poor Results Vitals/IOs Vital Signs Date Time Temp Pulse Resp B/P (MAP) Pulse Ox O2 Delivery O2 Flow Rate FiO2 11/20/17 05:17 97.7 81 16 101/58 (72) 98 Intake and Output 11/20/17 11/20/17 11/21/17 08:00 16:00 00:00 Intake Total 480 ml Balance 480 ml Assessment & Plan Problem List: (1) Brief psychotic disorder ICD Codes: F23 - Brief psychotic disorder Assessment & Plan Continue current treatment plan Justification for Cont. Inpt. Patient would decompensate in a less restrictive setting Request HC Surrog/Guard Advoc?: Yes Jr Contreras DO Nov 20, 2017 11:23
[2017-11-20] MEDS: ALUMINUM/MAGNESIUM/SIMETH 30 ML CUP PO PRN (16:48)
[2017-11-20 17:32] VITALS: BP 116/66; PULSE 100; RESP 16; TEMP 98.6; O2SAT 99
[2017-11-20] MEDS: clonazePAM 0.5 MG TAB PO SCH (20:14)
[2017-11-20] MEDS: hydrOXYzine HCL 50 MG TAB PO PRN (21:55)
[2017-11-21 05:49] VITALS: BP 104/67; PULSE 84; RESP 16; TEMP 97.7; O2SAT 97
[2017-11-21] MEDS: NICOTINE 21 MG/24 HR PATCH T-DERMAL SCH (09:00)
[2017-11-21] MEDS: HALOPERIDOL LACTATE 5 MG/ML AMP IM SCH ×2 (09:00→21:00)
[2017-11-21] MEDS: REMOVE OLD PATCH T-DERMAL SCH (09:00)
[2017-11-21] MEDS: risperiDONE ODT 1 MG TAB PO SCH ×2 (09:00→21:00)
[2017-11-21] MEDS: ESCITALOPRAM OXALATE 10 MG TAB PO SCH (09:29)
--- NOTE | 2017-11-21 13:34 | HHI.PYPN ---
Subjective Remarks Reviewed electronic medical record discussed case with staff. Patient has been compliant with medication. Her nurse reports that she is doing much better today. Follow-up was performed in patient's room. Patient was found ambulating the weldon without difficulty. Patient is much improved today. Her speech is clear, logical, and organized. Patient only gave evidence to signs of internal stimulation once or twice during the interview. When asked about her nightmares she seemed to have some thought blocking and she stated that she preferred not to discuss that. Her mood is good and her affect is much more euthymic today. She advises that once discharge she plans on moving back in with her father. States that she needs to work on getting a new car. She does report that she broke up with her boyfriend. She states that she intends on being compliant with follow-up and medications. Discussed with patient that if she continues to show improvement that we can begin thinking about discharge within the next few days. Mental Status Examination Appearance: Appropriate, Malodorous Consciousness: Alert Orientation: x4 Motor Activity: Normal gait Speech: Other (Speech only became has a tent during one part of the interview) Language: Adequate Fund of Knowledge: Adequate Attention and Concentration: Adequate Memory: Unremarkable Mood: Appropriate, Other (Initially good, became anxious and sad with questioning) Affect: Appropriate Thought Process & Associations: Intact Thought Content: Thought blocking (Only one time when asked about her nightmares) Hallucination Type: None Delusion Type: Other (I can elicit no delusional material today) Suicidal Ideation: No Suicidal Plan: No Suicidal Intention: No Homicidal Ideation: No Homicidal Plan: No Insight: Poor Judgment: Poor Results Vitals/IOs Vital Signs Date Time Temp Pulse Resp B/P (MAP) Pulse Ox O2 Delivery O2 Flow Rate FiO2 11/21/17 05:49 97.7 84 16 104/67 (74) 97 Assessment & Plan Problem List: (1) Brief psychotic disorder ICD Codes: F23 - Brief psychotic disorder Assessment & Plan Estimated LOS: Patient beginning to show some signs of improvement. However, still noted some internal stimulation and possible thought blocking when subject of her nightmares was brought up. Staff reports patient has been compliant with her medication of late. Cautiously optimistic that discharge may be able to occur within the next few days. Continue with current treatment plan. Days Justification for Cont. Inpt. At this point moving patient to a lower level of care would likely result in a decompensation. She still says some indications of occasional internal stimuli and thought blocking. Discharge planning has tentatively been started. Request HC Surrog/Guard Advoc?: Yes Letty Stephen Nov 21, 2017 13:34
[2017-11-21 18:00] VITALS: BP 112/62; PULSE 108; RESP 17; TEMP 98.4; O2SAT 99
[2017-11-21] MEDS: clonazePAM 0.5 MG TAB PO SCH (21:06)
[2017-11-22 05:27] VITALS: BP 92/51; PULSE 84; RESP 16; TEMP 97.9; O2SAT 97
[2017-11-22] MEDS: ALUMINUM/MAGNESIUM/SIMETH 30 ML CUP PO PRN (08:02)
[2017-11-22] MEDS: REMOVE OLD PATCH T-DERMAL SCH (08:26)
[2017-11-22] MEDS: risperiDONE ODT 1 MG TAB PO SCH ×2 (08:26→21:00)
[2017-11-22] MEDS: ESCITALOPRAM OXALATE 10 MG TAB PO SCH (08:26)
[2017-11-22] MEDS: NICOTINE 21 MG/24 HR PATCH T-DERMAL SCH (08:26)
[2017-11-22] MEDS: HALOPERIDOL LACTATE 5 MG/ML AMP IM SCH ×2 (09:00→21:00)
[2017-11-22] MEDS ORDERED: ONDANSETRON ODT 4 MG TAB PO ONE (11:45)
--- NOTE | 2017-11-22 11:47 | HHI.PYPN ---
Subjective Remarks Met with the patient nurse Karin and counselor Maria G, chart reviewed patient complaint medications, discussed with nursing and counselor. We spent time discussing patient's past history and relationship with a boyfriend, while her responses at times were delayed they were goal oriented and appropriate. She did acknowledge unprotected sexual activity with her boyfriend, did not feel he may have had other partners during their relationship. She states she has not has been checked for HIV which was negative she also said she had been treated for chlamydia which was positive a few months ago. She acknowledges use of cocaine and marijuana. He denied other drug use. I feel she does wish to stay with her father when she is discharged that there is still some mild ambiguity related to her boyfriend. Patient did acknowledge persistent auditory hallucinations are somewhat distracting nature for now we will have Maria G contact patient's father to arrange for a meeting tomorrow morning. We will order a serum test RPR chlamydia and gonorrhea testing patient is complaining some occasional fairly intense thoughts of nausea we will order Zofran 4 mg on a 1 time dose orally as needed nausea Review of Systems Except as stated in HPI: all other systems reviewed are Neg Mental Status Examination Appearance: Appropriate, Malodorous Consciousness: Alert Orientation: x4 Motor Activity: Normal gait Speech: Other (Speech only became has a tent during one part of the interview) Language: Adequate Fund of Knowledge: Adequate Attention and Concentration: Adequate Memory: Unremarkable Mood: Appropriate, Other (Initially good, became anxious and sad with questioning) Affect: Appropriate Thought Process & Associations: Intact Thought Content: Thought blocking (Only one time when asked about her nightmares) Hallucination Type: None Delusion Type: Other (I can elicit no delusional material today) Suicidal Ideation: No Suicidal Plan: No Suicidal Intention: No Homicidal Ideation: No Homicidal Plan: No Insight: Poor Judgment: Poor Results Vitals/IOs Vital Signs Date Time Temp Pulse Resp B/P (MAP) Pulse Ox O2 Delivery O2 Flow Rate FiO2 11/22/17 05:27 97.9 84 16 92/51 (59) 97 Assessment & Plan Problem List: (1) Brief psychotic disorder ICD Codes: F23 - Brief psychotic disorder Assessment & Plan Estimated LOS: days patient still acknowledging auditory hallucinations that appears to be somewhat more focused. She is compliant medications. We will attempt to arrange a meeting with father for tomorrow morning. See lab testing ordered above Justification for Cont. Inpt. At this time patient would decompensate a place to the lower level of care Discharge Planning Probable return home to father Request HC Surrog/Guard Advoc?: Yes Melchor Carmona MD Nov 22, 2017 11:47
[2017-11-22 17:52] VITALS: BP 130/55; PULSE 126; RESP 18; TEMP 98.1; O2SAT 97
[2017-11-22] MEDS: clonazePAM 0.5 MG TAB PO SCH (21:04)
[2017-11-23 05:34] VITALS: BP 95/46; PULSE 74; RESP 17; TEMP 97.8; O2SAT 98
[2017-11-23] MEDS: ESCITALOPRAM OXALATE 10 MG TAB PO SCH (08:32)
[2017-11-23] MEDS: risperiDONE ODT 1 MG TAB PO SCH ×2 (08:33→20:20)
[2017-11-23] MEDS: HALOPERIDOL LACTATE 5 MG/ML AMP IM SCH ×2 (08:36→21:00)
[2017-11-23] MEDS: REMOVE OLD PATCH T-DERMAL SCH (08:37)
[2017-11-23] MEDS: NICOTINE 21 MG/24 HR PATCH T-DERMAL SCH (08:37)
[2017-11-23] MEDS ORDERED: PALIPERIDONE PALMITATE 234 MG/1.5 ML SYRINGE IM SCH (11:00)
--- NOTE | 2017-11-23 13:26 | HHI.PYPN ---
Subjective Remarks Patient seen in my office with her father, counselor Maria G, and [facility] staff Nakul. Chart reviewed. Patient complaint medications. We discussed diagnosis and treatment medications and discharge plans. Father is quite supportive loving and focused on the welfare of his child. Patient is showing some reluctance to acknowledge the severity or chronicity of her problem. At 3 years like she denies having a mental illness. She does acknowledge her need to continue medications although perhaps not accepting the chronicity needed with the medications. Today she denied any voices or visions other remains some thought blocking. We discussed the addition of invega sustana to the regimen patient was initially somewhat reluctant to talk about a "shot" but with encouragement from her father she agreed to this. Patient will be given a 234 mg injection today with consideration of discharge on Tuesday if she tolerates the medication. Follow-up will be through [facility] for medication management, injections, and hopefully counseling Review of Systems Except as stated in HPI: all other systems reviewed are Neg Mental Status Examination Appearance: Appropriate, Malodorous Consciousness: Alert Orientation: x4 Motor Activity: Normal gait Speech: Other (Speech only became has a tent during one part of the interview) Language: Adequate Fund of Knowledge: Adequate Attention and Concentration: Adequate Memory: Unremarkable Mood: Appropriate, Other (Initially good, became anxious and sad with questioning) Affect: Appropriate Thought Process & Associations: Intact Thought Content: Thought blocking (Only one time when asked about her nightmares) Hallucination Type: None Delusion Type: Other (I can elicit no delusional material today) Suicidal Ideation: No Suicidal Plan: No Suicidal Intention: No Homicidal Ideation: No Homicidal Plan: No Insight: Poor Judgment: Poor Results Labs Test 11/22/17 19:40 Chlamydia trachomatis DNA (PCR) NOT DETECTED Neisseria gonorrhoeae DNA (PCR) NOT DETECTED Vitals/IOs Vital Signs Date Time Temp Pulse Resp B/P (MAP) Pulse Ox O2 Delivery O2 Flow Rate FiO2 11/23/17 05:34 97.8 74 17 95/46 (62) 98 Intake and Output 11/23/17 11/23/17 11/24/17 08:00 16:00 00:00 Intake Total 240 ml Balance 240 ml Assessment & Plan Problem List: (1) Brief psychotic disorder ICD Codes: F23 - Brief psychotic disorder Assessment & Plan Estimated LOS: days patient remains somewhat vigilant and skeptical however she is compliant with medications and with injection. Consider discharge on Saturday 11/25 with referral to [facility] for medication management injection appointments and counseling Justification for Cont. Inpt. At this time patient would decompensate a place to a lower level of care Discharge Planning Discharged to father follow-up [facility] Request HC Surrog/Guard Advoc?: Yes Melchor Carmona MD Nov 23, 2017 13:26
[2017-11-23 16:59] VITALS: BP 100/58; PULSE 124; RESP 18; TEMP 97.9; O2SAT 99
[2017-11-23] MEDS: clonazePAM 0.5 MG TAB PO SCH (20:11)
[2017-11-24 05:15] VITALS: BP 101/64; PULSE 78; RESP 16; TEMP 97.6; O2SAT 98
[2017-11-24] MEDS: risperiDONE ODT 1 MG TAB PO SCH ×2 (08:37→21:10)
[2017-11-24] MEDS: ESCITALOPRAM OXALATE 10 MG TAB PO SCH (08:37)
[2017-11-24] MEDS ORDERED: LEXA10TA PO (08:51)
[2017-11-24] MEDS ORDERED: RISP1TAB54 PO (08:52)
[2017-11-24] MEDS ORDERED: PALI234P IM (08:52)
[2017-11-24] MEDS: HALOPERIDOL LACTATE 5 MG/ML AMP IM SCH ×2 (09:00→21:00)
[2017-11-24] MEDS: NICOTINE 21 MG/24 HR PATCH T-DERMAL SCH (09:00)
[2017-11-24] MEDS: REMOVE OLD PATCH T-DERMAL SCH (09:00)
--- NOTE | 2017-11-24 09:00 | HHI.DS ---
Psychiatry Discharge Summary Inpatient Psychiatric care?: Yes Advance Directive: No Reason Not Provided: Due to Patient Condition Mental Health AdvanceDirective: No Health Care Proxy: No Admission Admission Date Nov 03, 2017 at 10:42 Admission Diagnosis: (1) Brief psychotic disorder ICD Code: F23 - Brief psychotic disorder Brief History The patient is a 22-year-old woman, domiciled with her boyfriend in [place], unemployed, with psychiatric history of depression, cannabis use disorder, 1 previous psychiatric hospitalization, she was just discharged from [facility] after a hospitalization of 4 days due to depression, no previous suicide attempts, she was discharged on Celexa 40 mg, Abilify 2 mg, she has not significant medical history, who presents to the emergency room with her father for evaluation of altered mental status. Patient's mother states she started Lexapro and Abilify recently and since then she has not been acting normally. He states she is responding to external stimuli. Patient reports using drugs including cocaine but denies any recent drug use. She denies any physical complaints at this time. Denies headache, shortness of breath, chest pain, abdominal pain. She is difficult to extract information from because she seems preoccupied and has difficulty with word finding. History is limited. Patient was Boogie acted by Ms. Spencer in the ER. She has a workup of delirium due to confusion. CT scan of the brain is negative for acute abnormality. Chemistry with potassium of 3.1, oral replacement ordered.Urine drug screen is positive for marijuana. Ammonia level is normal. Electronic record was reviewed. Case was widely discussed with nurse in charge medical staff, collateral information from her father was obtained: Tim Anuj, . On psychiatric evaluation today the patient is found standing in the door of her room, very guarded, seems to be in acute distress, very anxious and visibly scared. Once the patient saw me she is started to ask "are you god, are you god, please I ask you for forgiveness, please forgive me, I being doing very bad things," and I started crying. As I redirect I reassured the patient, she was able to calm down, which he seems to be very paranoid and internally preoccupied. Patient reports that she feels that all the eyes around and looking at her. She says that she feels like she is not safe here "and these people could be tried to kill". Patient seems to be very religiously preoccupied, she has a Bible over her bed and is continuously imploring for forgiveness from God and angels. Patient says that she feels like her mind is very weak "I know that you can see what I am thinking now". At some point the patient just stopped talking, not answering any question, with a visible blocking thought. As per nurse in charge , the patient has been acting bizarre in the ER, disinhibited at times, also internally stimulated, paranoid, yesterday she showed sexual inappropriate behavior with another patient. She seems to be confused, but oriented 3. She does not know the reason of her hospitalization. She denies suicidal and homicidal ideation, she denies visual and auditory hallucinations. Her father states that the patient does not have any psychiatric history. She has been a very healthy and normal person. She recently moved with her boyfriend to [place]. About a week ago she called him stating that she was very depressed because her boyfriend was cheating on her with her neighbor. She was talking about killing herself and he took her to [facility] where she was admitted with depression. She was admitted for 4 days and then discharge. However, after the discharge the patient started acting very bizarrely. For example, at some time she was watching that he and she was telling him that the person killed in a movie was her and he started crying. Another thing is that he confirmed that the patient's boyfriend was not cheating of her with antibiotic, and she was most probably paranoid before being admitted in [facility]. About 2 days ago the patient started to cry for no reason, making accusations toward others, making a lot of hinduism statements and becoming very disorganized and he decided to bring her here. He reports that the mother of the patient is an opiate abuser. But, her grandmother has history of depression and 1 of her aunts committed suicide. Tobacco Use In Past 30 Days: Smokeless Tobacco Alcohol Use: Never Hospital Course Patient's hospital course was overall uneventful, patient's no show paranoia and thought blocking auditory hallucinations were fairly persistent. However with her increasing compliance with medication the addition of Risperdal M tab to the regimen led to her paranoia diminishing the auditory hallucinations markedly diminishing. We also had meetings with patient's father was involved with the treatment team. We did meet 2 days ago with patient and her father they both feel she is doing better. However patient still shows some reluctance to fully acknowledge her mental illness, the chronicity of this, the need for medication, and appropriate long-term psychiatric follow-up. However she is willing to take the long-acting injection, willing to stay with her dad and make her appointments. I also strongly advocated for absolute abstinence she was somewhat ambiguous about that also. In any event she has reached maximum benefit of this hospitalization patient to be discharged tomorrow morning to her father with follow-up through [facility] for medication management injection services and counseling Results Blood Pressure 101 / 64 Vital Signs Date Time Temp Pulse Resp B/P (MAP) Pulse Ox O2 Delivery O2 Flow Rate FiO2 11/24/17 05:15 97.6 78 16 101/64 (76) 98 Laboratory Tests Test 11/22/17 12:29 11/22/17 19:40 Laboratory Results Test 11/04/17 11:09 Cholesterol Level 128 MG/DL (120-200) HDL Cholesterol 53.9 MG/DL (40.0-60.0) Hemoglobin A1c 5.2 % (4.3-6.0) LDL Cholesterol 60 MG/DL (0-99) Triglycerides Level 69 MG/DL (42-150) Summary of Procedures None done Imaging Last Impressions Head CT 11/02/172025 Signed Impressions: Service Date/Time: Thursday, November 02, 2017 21:02 - CONCLUSION: No acute disease. Melchor Ness MD Pending results at discharge: No Medications # of Antipsychotic meds at D/C: 1 Approp Antipsych med options 1 - Minimum of three failed multiple trials of monotherapy. 2 - Documented plan to taper to monotherapy due to previous use of multiple meds OR cross-taper in progress at D/C. 3 - Documentation of augmentation of Clozapine. 4 - Justification other than those listed in allowable values 1-3, document here : Discharge Discharge Date: Nov 25, 2017 Discharge Diagnosis: (1) Brief psychotic disorder Diagnosis: Principal ICD Code: F23 - Brief psychotic disorder Pt Condition on Discharge: Stable Discharge Disposition: Discharge Home Discharge Instructions Diet Instructions: As Tolerated, No Restrictions Activities you can perform: Regular-No Restrictions [facility], also for follow-up injection services 12/21/2017) Discharge Time > 30 minutes Mental Status Examination Appearance: Appropriate, Malodorous Consciousness: Alert Orientation: x4 Motor Activity: Normal gait Speech: Other (Speech only became has a tent during one part of the interview) Language: Adequate Fund of Knowledge: Adequate Attention and Concentration: Adequate Memory: Unremarkable Mood: Appropriate, Other (Initially good, became anxious and sad with questioning) Affect: Appropriate Thought Process & Associations: Intact Thought Content: Thought blocking (Only one time when asked about her nightmares) Hallucination Type: None Delusion Type: Other (I can elicit no delusional material today) Suicidal Ideation: No Suicidal Plan: No Suicidal Intention: No Homicidal Ideation: No Homicidal Plan: No Insight: Poor Judgment: Poor Discharge/Advance Care Plan Health Problems: (1) Brief psychotic disorder Goals to promote your health * To prevent worsening of your condition and complications * To maintain your health at the optimal level Directions to meet your goals Take your medications as prescribed Follow your dietary instruction Follow activity as directed Keep your appointments as scheduled Take your immunizations and boosters as scheduled If your symptoms worsen call your PCP, if no PCP go to Urgent Care Center or Emergency Room For 28/02 questions related to your inpatient stay or results of tests pending at discharge, please contact Dr. Melchor Carmona at Smoking is Dangerous to Your Health. Avoid second hand smoking Melchor Carmona MD Nov 24, 2017 09:00
--- NOTE | 2017-11-24 14:24 | PD.TTN ---
Patient Problems 1. Discharge planning 2. Medication compliance 3. Knowledge deficit 4. Lack of coping skills Progress Toward Goals Provider Present: Dr. Dago Carmona Provider Input: 11/23/17 - Patient is compliant with medications and appears to be improving. Family meeting with patient's father today. 11/16/17 - Patient remains paranoid, thought blocking, denies voices. Patient father wants the patient to return home when stable. Dr. Carmona has his treatment team meeting to discuss patient's treatment plan, discharge and medication. Patient continues to meet criteria. Patient will go home when stable. Nurse(s) Input: Patient's nurse reports patient is thought blocking, has delayed speech, presents internally stimulated, is religiously preoccupied. Patient is medication compliant. Patient is isolated to room. Psychiatric Counselors Present: [facility] RADHA Van Psych Therapist Input: 11/23/17 - Family meeting with patient's father today. 11/16/17 - [facility] is holding a bed for this patient, however, the patient must be willing to enter their program. Patient presents internally stimulated, has thought derailment, very distracted. Meets criteria at this time. Group Spec/RT/OT/TAPIA Present: JOSE Nolan, Carlitos Ch, OT Group Spec/RT/OT/TAPIA Input: 11/23/17 - Patient attends groups with good participation. 11/16/17 - Patient attends group activities with good participation. Patient cannot initiate needs. Externally motivated to attend and then cannot tolerate groups. Discharge Plan [facility] 11/23/17 - Patient will be discharged to the care of her father and will follow- up at [facility]. 11/16/17 - Patient will return home to her father;s house, or enter [facility] treatment enter for further stabilization. Documentation Scribe: RADHA Van Date Resolved: Nov 23, 2017 Maria G Armijo Nov 24, 2017 14:24
[2017-11-24 17:55] VITALS: BP 105/56; PULSE 98; RESP 17; TEMP 98; O2SAT 98
[2017-11-25] MEDS: hydrOXYzine HCL 50 MG TAB PO PRN (00:21)
[2017-11-25 05:34] VITALS: BP 90/51; PULSE 94; RESP 16; TEMP 98.4; O2SAT 96
[2017-11-25] MEDS: ESCITALOPRAM OXALATE 10 MG TAB PO SCH (08:31)
[2017-11-25] MEDS: risperiDONE ODT 1 MG TAB PO SCH (08:32)
[2017-11-25] MEDS: REMOVE OLD PATCH T-DERMAL SCH (09:00)
[2017-11-25] MEDS: HALOPERIDOL LACTATE 5 MG/ML AMP IM SCH (09:00)
[2017-11-25] MEDS: NICOTINE 21 MG/24 HR PATCH T-DERMAL SCH (09:00)
== END 2017-11-25 11:38 | disposition home or self-care (01) | DRG 885 ==
LOC: NEPJ 18:03 → NEDA 11-03 10:42 → H270 11-03 12:35 → H260 11-05 11:30
PROVIDERS: ADMIT Psychiatry & Neurology Psychiatry; ATTEND Psychiatry & Neurology Psychiatry
DX: F29 Unspecified psychosis not due to a substance or known physiological condition (principal); F41.9 Anxiety disorder, unspecified; F12.90 Cannabis use, unspecified, uncomplicated; R00.0 Tachycardia, unspecified; Z91.14 Patient's other noncompliance with medication regimen; Z81.8 Family history of other mental and behavioral disorders; Z79.899 Other long term (current) drug therapy
CPT/HCPCS: 70450; 80048; 80053; 80061; 80307; 81001; 82140; 83036; 84702; 84703; 85025; 86592; 86703; 87491; 87591; J2426